=== PATIENT | female | born 1960 | race African-American/Black ===

== ENCOUNTER 2017-09-23 10:41 | Emergency (ER) | payer MEDICARE, MEDICAID ==
[~2017-09-23] VITALS: Ht 167.6 cm; Wt 97.0 kg
[2017-09-23] MEDS ORDERED: ALBUTEROL (0.083%) 2.5MG/3ML NEB HHN STA (11:10)
[2017-09-23] MEDS ORDERED: METHYLPREDNISOLONE SOD SUCC 125 MG/2 ML VIAL IV STA (11:10)
[2017-09-23] MEDS ORDERED: IPRATROPIUM BROMIDE (0.02%) 0.5MG/2.5ML NEB HHN STA (11:10)
[2017-09-23 13:15] VITALS: BP 164/90
[2017-09-23] MEDS ORDERED: PREDNISONE 20MG TABLET PO ONE (13:15)
== END 2017-09-23 15:00 | disposition home or self-care (01) ==
LOC: ER 14:36
DX: J40 Bronchitis, not specified as acute or chronic (principal); Z88.0 Allergy status to penicillin; Z87.891 Personal history of nicotine dependence; Z98.890 Other specified postprocedural states
CPT/HCPCS: 71045; 94644; 99285; J7512; J7611; J2930

== ENCOUNTER 2018-03-27 09:08 | Inpatient (IN) | payer MEDICARE, MEDICAID ==
[~2018-03-27] VITALS: Ht 165.1 cm; Wt 98.6 kg
[2018-03-27] MEDS ORDERED: MORPHINE SULFATE 4 MG/ML CPJ (NOT FOR IM USE) IV ONE (09:30)
[2018-03-27 09:58] LABS: BASOPHILS % 0.8 % (0.0-2.0); EOSINOPHILS % 3.9 % (0.0-5.0); HEMOGLOBIN. 12.7 g/dL (12.0-16.0); LYMPHOCYTES % 53.2 % (20.0-50.0); MEAN CORPUSCULAR HEMOGLOBIN 32.5 pg (28.0-32.0); MEAN PLATELET VOLUME 9.1 fl (7.4-10.4); NEUTROPHILS % 34.1 % (40.0-76.0); PLATELET 194 x1000/uL (130-400); RED BLOOD CELL COUNT 3.92 mill/uL (4.2-5.4); RED CELL DISTRIBUTION WIDTH 13.6 % (11.6-14.6)
[2018-03-27 10:00] LABS: CHLORIDE 108 mEq/L (98-107)
[2018-03-27 10:01] LABS: INR 1.2; PROTHROMBIN TIME 11.8 sec (9.1-11.1)
[2018-03-27] MEDS ORDERED: CARISOPRODOL 350 MG TABLET PO PRN ×2 (11:00→17:15)
[2018-03-27] MEDS ORDERED: CLONIDINE 0.1MG TABLET PO PRN (11:00)
[2018-03-27] MEDS ORDERED: HYDROCODONE/ACETAMINOPHEN 10/325MG TABLET PO PRN (11:00)
[2018-03-27] MEDS: GABAPENTIN 300MG CAPSULE PO SCH ×3 (14:30→23:15)
[2018-03-27] MEDS: MORPHINE SULFATE 4 MG/ML CPJ (NOT FOR IM USE) IV PRN ×2 (15:00→18:27)
[2018-03-27] MEDS: ONDANSETRON HCL 4MG/2ML VIAL IV PRN (15:01)
[2018-03-27 17:26] VITALS: BP 167/87
[2018-03-27] MEDS: LOSARTAN POTASSIUM 50 MG TABLET PO SCH (18:09)
[2018-03-27 20:00] VITALS: BP 114/63
[2018-03-27] MEDS: AMLODIPINE 5MG TABLET PO SCH (21:00)
[2018-03-28] VITALS: BP 103/54
[2018-03-28] MEDS: MORPHINE SULFATE 4 MG/ML CPJ (NOT FOR IM USE) IV PRN ×5 (01:43→22:44)
[2018-03-28 04:00] VITALS: BP 119/69
[2018-03-28] MEDS: GABAPENTIN 300MG CAPSULE PO SCH ×3 (05:38→21:27)
[2018-03-28 08:00] VITALS: BP 137/81
[2018-03-28] MEDS: LOSARTAN POTASSIUM 50 MG TABLET PO SCH (09:21)
[2018-03-28] MEDS: AMLODIPINE 5MG TABLET PO SCH ×2 (09:21→21:27)
[2018-03-28 12:00] VITALS: BP 136/73
[2018-03-28 16:00] VITALS: BP 128/83
[2018-03-28 20:00] VITALS: BP 155/80
[2018-03-29] VITALS (46 sets, daily range): BP systolic 41–174; BP diastolic 24–106
[2018-03-29] MEDS: MORPHINE SULFATE 4 MG/ML CPJ (NOT FOR IM USE) IV PRN ×3 (02:51→13:24)
[2018-03-29] MEDS: GABAPENTIN 300MG CAPSULE PO SCH ×4 (06:00→21:31)
[2018-03-29 07:21] LABS: CHLORIDE 107 mEq/L (98-107)
[2018-03-29 07:26] LABS: BASOPHILS % 0.7 % (0.0-2.0); HEMATOCRIT. 36.4 % (36.0-48.0); HEMOGLOBIN. 12.1 g/dL (12.0-16.0); LYMPHOCYTES % 53.3 % (20.0-50.0); MEAN CORPUSCULAR HEMOGLOBIN 32.2 pg (28.0-32.0); MEAN CORPUSCULAR VOLUME 96.6 fL (81.0-99.0); MEAN PLATELET VOLUME 9.3 fl (7.4-10.4); PLATELET 169 x1000/uL (130-400); RED BLOOD CELL COUNT 3.77 mill/uL (4.2-5.4); RED CELL DISTRIBUTION WIDTH 13.5 % (11.6-14.6)
[2018-03-29] MEDS: LOSARTAN POTASSIUM 50 MG TABLET PO SCH (09:00)
[2018-03-29] MEDS: AMLODIPINE 5MG TABLET PO SCH ×2 (09:00→21:26)
[2018-03-29] MEDS ORDERED: THROMBIN (BOVINE) 5000 UNITS/VIAL TOP ONE (09:38)
[2018-03-29] MEDS ORDERED: BACITRACIN ZINC 15GM TUBE TOP ONE (09:38)
[2018-03-29] MEDS ORDERED: GELATIN SPONGE,COMPRESSED SZ 100 ONE (09:39)
[2018-03-29] MEDS ORDERED: BACITRACIN 50,000 UNITS/VIAL ONE (09:39)
[2018-03-29] MEDS ORDERED: NORMAL SALINE 0.9% 10 ML SYR ONE ×2 (09:39→11:27)
[2018-03-29] MEDS ORDERED: ONDANSETRON HCL 4MG/2ML VIAL IV PRN (10:00)
[2018-03-29] MEDS ORDERED: FENTANYL CITRATE/PF 50MCG/ML 2ML VIAL IV PRN (10:00)
[2018-03-29] MEDS ORDERED: MIDAZOLAM HCL 2 MG/2 ML VIAL ONE (10:28)
[2018-03-29] MEDS ORDERED: PROPOFOL 200MG/20ML VIAL IV ONE (10:28)
[2018-03-29] MEDS ORDERED: FENTANYL CITRATE/PF 50MCG/ML 5ML VIAL ONE (10:28)
[2018-03-29] MEDS ORDERED: ROCURONIUM BROMIDE 10MG/ML VIAL 5ML IV ONE (10:28)
[2018-03-29] MEDS ORDERED: LIDOCAINE HCL/PF 1% 10 MG/ML 5ML VIAL ONE (10:29)
[2018-03-29] MEDS ORDERED: DEXAMETHASONE 4MG/ML 1ML VIAL ONE (10:29)
[2018-03-29] MEDS ORDERED: METOCLOPRAMIDE HCL 10MG/2ML VIAL ONE (10:29)
[2018-03-29] MEDS ORDERED: ONDANSETRON HCL 4MG/2ML VIAL ONE (10:29)
[2018-03-29] MEDS ORDERED: KETOROLAC 30MG/ML VIAL ONE (10:29)
[2018-03-29] MEDS ORDERED: LIDOCAINE HCL/EPINEPHRINE 1%-EPI 1:100,000 20 ML VIAL ONE ×2 (10:33→10:45)
[2018-03-29] MEDS ORDERED: SODIUM CHLORIDE 0.9% 100 ML ONE (11:27)
[2018-03-29] MEDS ORDERED: VANCOMYCIN HCL 500 MG/VIAL ONE (11:27)
[2018-03-29] MEDS ORDERED: LABETALOL HCL 5MG/ML VIAL 20ML IV ONE (11:40)
[2018-03-29] MEDS ORDERED: NEOSTIGMINE METHYLSULFATE 1MG/ML 10 ML VIAL ONE (12:34)
[2018-03-29] MEDS ORDERED: GLYCOPYRROLATE 0.2 MG/ML 2ML VIAL ONE (12:35)
[2018-03-29] MEDS ORDERED: NICARDIPINE 100 MG in SODIUM CHLORIDE 0.9% 60 ML IV PRN (13:30)
[2018-03-29] MEDS: DEXT 5%/LACTATED RINGERS 1,000 ML IV SCH ×2 (13:33→23:30)
[2018-03-29] MEDS ORDERED: HYDROMORPHONE PCA 10MG/50ML IV PRN (13:45)
[2018-03-29] MEDS ORDERED: NALOXONE INJ IV PRN (13:45)
[2018-03-29] MEDS ORDERED: ONDANSETRON INJ IV PRN (13:45)
[2018-03-29] MEDS ORDERED: DIPHENHYDRAMINE INJ IV PRN (13:45)
[2018-03-29] MEDS ORDERED: BISACODYL 5MG TABLET PO PRN (15:30)
[2018-03-29] MEDS ORDERED: IPRATROPIUM/ALBUTEROL 0.5-3(2.5)MG/3ML NEB HHN PRN (15:30)
[2018-03-29] MEDS: DEXAMETHASONE 4MG/ML 1ML VIAL IV SCH (17:19)
[2018-03-29] MEDS: VANCOMYCIN 1 G PREMIX 200 ML IV SCH (17:20)
[2018-03-29] MEDS: IPRATROPIUM/ALBUTEROL 0.5-3(2.5)MG/3ML NEB HHN SCH (20:40)
[2018-03-30] VITALS (53 sets, daily range): BP systolic 102–172; BP diastolic 28–104
[2018-03-30] MEDS: DEXAMETHASONE 4MG/ML 1ML VIAL IV SCH ×4 (00:51→18:00)
[2018-03-30] MEDS: IPRATROPIUM/ALBUTEROL 0.5-3(2.5)MG/3ML NEB HHN SCH ×4 (01:15→21:38)
[2018-03-30] MEDS: DEXT 5%/LACTATED RINGERS 1,000 ML IV SCH ×2 (02:55→14:31)
[2018-03-30 05:31] LABS: HEMATOCRIT. 36.7 % (36.0-48.0); HEMOGLOBIN. 12.3 g/dL (12.0-16.0); LYMPHOCYTES % 8.6 % (20.0-50.0); MEAN CORPUSCULAR HEMOGLOBIN 32.3 pg (28.0-32.0); MEAN CORPUSCULAR VOLUME 96.2 fL (81.0-99.0); MEAN PLATELET VOLUME 9.4 fl (7.4-10.4); MONOCYTES % 3.3 % (2.0-8.0); NEUTROPHILS % 88.1 % (40.0-76.0); PLATELET 177 x1000/uL (130-400); RED BLOOD CELL COUNT 3.82 mill/uL (4.2-5.4); RED CELL DISTRIBUTION WIDTH 13.4 % (11.6-14.6)
[2018-03-30 05:35] LABS: CHLORIDE 107 mEq/L (98-107)
[2018-03-30] MEDS: GABAPENTIN 300MG CAPSULE PO SCH ×3 (06:00→20:24)
[2018-03-30] MEDS: VANCOMYCIN 1 G PREMIX 200 ML IV SCH (06:31)
[2018-03-30] MEDS: LOSARTAN POTASSIUM 100 MG TABLET PO SCH (08:35)
[2018-03-30] MEDS: DOCUSATE SODIUM 100MG CAPSULE PO SCH (08:35)
[2018-03-30] MEDS: AMLODIPINE 5MG TABLET PO SCH ×2 (08:35→20:24)
[2018-03-30] MEDS: MORPHINE SULFATE 4 MG/ML CPJ (NOT FOR IM USE) IV PRN ×2 (14:31→20:24)
[2018-03-30] MEDS: ONDANSETRON HCL 4MG/2ML VIAL IV PRN (20:25)
[2018-03-31] VITALS: BP 142/77
[2018-03-31] MEDS: ONDANSETRON HCL 4MG/2ML VIAL IV PRN ×2 (01:15→06:31)
[2018-03-31] MEDS: MORPHINE SULFATE 4 MG/ML CPJ (NOT FOR IM USE) IV PRN ×5 (01:16→17:58)
[2018-03-31] MEDS: IPRATROPIUM/ALBUTEROL 0.5-3(2.5)MG/3ML NEB HHN SCH ×2 (02:54→07:50)
[2018-03-31 04:00] VITALS: BP 127/71
[2018-03-31] MEDS: GABAPENTIN 300MG CAPSULE PO SCH ×2 (06:30→14:00)
[2018-03-31] MEDS: DEXT 5%/LACTATED RINGERS 1,000 ML IV SCH (06:30)
[2018-03-31 08:00] VITALS: BP 145/84
[2018-03-31] MEDS: DOCUSATE SODIUM 100MG CAPSULE PO SCH (08:07)
[2018-03-31] MEDS: AMLODIPINE 5MG TABLET PO SCH ×2 (08:07→21:04)
[2018-03-31] MEDS: LOSARTAN POTASSIUM 100 MG TABLET PO SCH (08:07)
[2018-03-31 12:00] VITALS: BP 146/88
[2018-03-31] MEDS ORDERED: LACTULOSE 20G/30ML UDC PO NR (15:30)
[2018-03-31 16:00] VITALS: BP 114/80
[2018-03-31 20:00] VITALS: BP 143/81
[2018-03-31] MEDS: GABAPENTIN 400MG CAPSULE PO SCH (21:04)
[2018-04-01] VITALS (8 sets, daily range): BP systolic 104–156; BP diastolic 61–86
[2018-04-01] MEDS: GABAPENTIN 400MG CAPSULE PO SCH ×3 (06:50→21:01)
[2018-04-01 07:48] LABS: CHLORIDE 107 mEq/L (98-107)
[2018-04-01 07:49] LABS: BASOPHILS % 0.1 % (0.0-2.0); EOSINOPHILS % 0.1 % (0.0-5.0); HEMATOCRIT. 35.2 % (36.0-48.0); HEMOGLOBIN. 11.9 g/dL (12.0-16.0); LYMPHOCYTES % 26.8 % (20.0-50.0); MEAN CORPUSCULAR HEMOGLOBIN 32.5 pg (28.0-32.0); MEAN CORPUSCULAR VOLUME 96.2 fL (81.0-99.0); MEAN PLATELET VOLUME 9.5 fl (7.4-10.4); MONOCYTES % 7.9 % (2.0-8.0); NEUTROPHILS % 65.1 % (40.0-76.0); PLATELET 173 x1000/uL (130-400); RED BLOOD CELL COUNT 3.66 mill/uL (4.2-5.4); RED CELL DISTRIBUTION WIDTH 13.4 % (11.6-14.6)
[2018-04-01] MEDS: DOCUSATE SODIUM 100MG CAPSULE PO SCH (08:54)
[2018-04-01] MEDS: AMLODIPINE 5MG TABLET PO SCH ×2 (08:54→21:02)
[2018-04-01] MEDS: MORPHINE SULFATE 4 MG/ML CPJ (NOT FOR IM USE) IV PRN ×4 (08:55→21:02)
[2018-04-01] MEDS: LOSARTAN POTASSIUM 100 MG TABLET PO SCH (08:55)
[2018-04-01] MEDS: DEXT 5%/LACTATED RINGERS 1,000 ML IV SCH ×2 (11:08→12:05)
[2018-04-01] MEDS ORDERED: HYDROCODONE/ACETAMINOPHEN 10/325MG TABLET PO PRN (11:45)
== END 2018-04-01 23:00 | DRG 471 ==
LOC: ER 09:27 → 5WST 10:45 → EDBEDREQTM 10:50 → EDBEDREQ 10:50 → ENRESERV 13:46 → MICUSO 03-29 13:10 → 6EST 03-30 13:40
PROVIDERS: ADMIT Internal Medicine; ATTEND Internal Medicine
PROC: 0RT30ZZ Resection of Cervical Vertebral Disc, Open Approach (ICD-10-PCS; 2018-03-29)
PROC: 0RG20K0 Fusion of 2 or more Cervical Vertebral Joints with Nonautologous Tissue Substitute, Anterior Approach, Anterior Column, Open Approach (ICD-10-PCS; principal; 2018-03-29 13:00)
DX: M48.03 Spinal stenosis, cervicothoracic region (principal); G82.50 Quadriplegia, unspecified; E44.1 Mild protein-calorie malnutrition; M47.12 Other spondylosis with myelopathy, cervical region; I10 Essential (primary) hypertension; E87.8 Other disorders of electrolyte and fluid balance, not elsewhere classified; E66.01 Morbid (severe) obesity due to excess calories; D64.9 Anemia, unspecified; G89.29 Other chronic pain; R07.89 Other chest pain; J44.9 Chronic obstructive pulmonary disease, unspecified; I25.10 Atherosclerotic heart disease of native coronary artery without angina pectoris; K59.00 Constipation, unspecified; M48.061 Spinal stenosis, lumbar region without neurogenic claudication; S14.109A Unspecified injury at unspecified level of cervical spinal cord, initial encounter; I25.2 Old myocardial infarction; Z79.899 Other long term (current) drug therapy; Z82.49 Family history of ischemic heart disease and other diseases of the circulatory system; Z83.3 Family history of diabetes mellitus; Z90.710 Acquired absence of both cervix and uterus; Z88.0 Allergy status to penicillin; Z68.36 Body mass index [BMI] 36.0-36.9, adult; Z91.81 History of falling; X58.XXXA Exposure to other specified factors, initial encounter; Y93.89 Activity, other specified; Y92.89 Other specified places as the place of occurrence of the external cause; Y99.8 Other external cause status
CPT/HCPCS: 36415; 71045; 72040; 72141; 72148; 80048; 80053; 80061; 83036; 83880; 84443; 84484; 85025; 85610; 88304; 88311; 93005; 93306; 93970; 94640; 95925; 95926; 95928; 96374; 96375; 97163; 97167; 97530; 99285; A4216; C1713; C1893; J1100; J1885; J2250; J2270; J2405; J2704; J2710; J2765; J3010; J3370; J3490; J7050; J7121; J7620; L0172

== ENCOUNTER 2018-04-01 23:02 | Inpatient (IN) | payer MEDICARE, MEDICAID ==
[~2018-04-01] VITALS: Ht 165.1 cm; Wt 98.6 kg
[2018-04-01 23:02] VITALS: BP 127/73
[2018-04-02] MEDS ORDERED: IPRATROPIUM/ALBUTEROL 0.5-3(2.5)MG/3ML NEB HHN PRN
[2018-04-02] MEDS ORDERED: ACETAMINOPHEN 325MG TABLET PO PRN
[2018-04-02] MEDS ORDERED: CLONIDINE 0.1MG TABLET PO PRN
[2018-04-02] MEDS ORDERED: MORPHINE SULFATE 4 MG/ML CPJ (NOT FOR IM USE) IV PRN
[2018-04-02] MEDS ORDERED: ONDANSETRON HCL 4MG/2ML INJ IV PRN
[2018-04-02] MEDS: HYDROCODONE/ACETAMINOPHEN 10/325MG TABLET PO PRN ×3 (00:35→12:18)
[2018-04-02] MEDS: DEXT 5%/LACTATED RINGERS 1,000 ML IV SCH ×5 (04:43→06:21)
[2018-04-02] MEDS: GABAPENTIN 400MG CAPSULE PO SCH ×3 (06:01→22:46)
[2018-04-02 07:05] LABS: CHLORIDE 105 mEq/L (98-107)
[2018-04-02 08:00] VITALS: BP 129/75
[2018-04-02] MEDS: LOSARTAN POTASSIUM 100 MG TABLET PO SCH (08:59)
[2018-04-02] MEDS: AMLODIPINE 5MG TABLET PO SCH ×2 (08:59→21:00)
[2018-04-02] MEDS ORDERED: DOCUSATE SODIUM 100MG CAPSULE PO SCH (09:00)
[2018-04-02] MEDS ORDERED: BISACODYL 5MG TABLET PO PRN (12:45)
[2018-04-02] MEDS ORDERED: NA PHOS,M-B/NA PHOS,DI-BA ENEMA 118ML PR PRN (12:45)
[2018-04-02] MEDS ORDERED: BISACODYL 10MG SUPP PR PRN (12:45)
[2018-04-02] MEDS: LACTULOSE 20G/30ML UDC PO SCH ×2 (13:23→22:46)
[2018-04-02] MEDS: PANTOPRAZOLE 40MG DR TABLET PO SCH (14:28)
[2018-04-02 15:39] LABS: BASOPHILS % 0.2 % (0.0-2.0); EOSINOPHILS % 1.9 % (0.0-5.0); HEMATOCRIT. 37.8 % (36.0-48.0); HEMOGLOBIN. 12.6 g/dL (12.0-16.0); LYMPHOCYTES % 47.2 % (20.0-50.0); MEAN CORPUSCULAR HEMOGLOBIN 32.1 pg (28.0-32.0); MEAN PLATELET VOLUME 9.2 fl (7.4-10.4); NEUTROPHILS % 40.7 % (40.0-76.0); PLATELET 185 x1000/uL (130-400); RED BLOOD CELL COUNT 3.94 mill/uL (4.2-5.4); RED CELL DISTRIBUTION WIDTH 13.4 % (11.6-14.6)
[2018-04-02] MEDS: DOCUSATE SODIUM 100MG CAPSULE PO SCH (17:30)
[2018-04-02 20:00] VITALS: BP 129/74
[2018-04-02] MEDS: CARISOPRODOL 350 MG TABLET PO PRN (20:12)
[2018-04-02] MEDS: POLYETHYLENE GLYCOL 3350 (17GM) 1 DOSE PACK PO SCH (22:46)
[2018-04-03] MEDS: HYDROCODONE/ACETAMINOPHEN 10/325MG TABLET PO PRN ×5 (02:27→21:23)
[2018-04-03] MEDS: LACTULOSE 20G/30ML UDC PO SCH (06:00)
[2018-04-03] MEDS: GABAPENTIN 400MG CAPSULE PO SCH ×3 (06:00→21:22)
[2018-04-03] MEDS: PANTOPRAZOLE 40MG DR TABLET PO SCH ×2 (06:21→06:29)
[2018-04-03] MEDS: AMLODIPINE 5MG TABLET PO SCH ×2 (07:55→20:31)
[2018-04-03] MEDS: LOSARTAN POTASSIUM 100 MG TABLET PO SCH (07:55)
[2018-04-03] MEDS: DOCUSATE SODIUM 100MG CAPSULE PO SCH ×2 (07:55→17:15)
[2018-04-03 08:00] VITALS: BP 143/91
[2018-04-03 17:22] LABS: CLARITY URINE CLEAR (CLEAR); COLOR URINE YELLOW (YELLOW); KETONES URINE NEGATIVE (NEGATIVE); LEUKOCYTE ESTERASE URINE NEGATIVE (NEGATIVE); NITRITE URINE NEGATIVE (NEGATIVE); OCCULT BLOOD URINE NEGATIVE (NEGATIVE); PROTEIN URINE NEGATIVE (NEGATIVE); SPECIFIC GRAVITY URINE 1.008 (1.005-1.030)
[2018-04-03 20:00] VITALS: BP 123/80
[2018-04-03] MEDS: POLYETHYLENE GLYCOL 3350 (17GM) 1 DOSE PACK PO SCH (20:30)
[2018-04-04] MEDS: TRAMADOL 50MG TABLET PO PRN ×3 (03:35→16:43)
[2018-04-04] MEDS: GABAPENTIN 400MG CAPSULE PO SCH ×3 (06:34→21:51)
[2018-04-04] MEDS: PANTOPRAZOLE 40MG DR TABLET PO SCH (06:34)
[2018-04-04] MEDS: HYDROCODONE/ACETAMINOPHEN 10/325MG TABLET PO PRN ×3 (06:35→19:00)
[2018-04-04 07:17] LABS: BASOPHILS % 0.5 % (0.0-2.0); EOSINOPHILS % 3.8 % (0.0-5.0); HEMATOCRIT. 37.8 % (36.0-48.0); HEMOGLOBIN. 12.7 g/dL (12.0-16.0); LYMPHOCYTES % 47.3 % (20.0-50.0); MEAN CORPUSCULAR HEMOGLOBIN 32.2 pg (28.0-32.0); MEAN CORPUSCULAR VOLUME 96.1 fL (81.0-99.0); MEAN PLATELET VOLUME 9.4 fl (7.4-10.4); MONOCYTES % 8.9 % (2.0-8.0); NEUTROPHILS % 39.5 % (40.0-76.0); PLATELET 185 x1000/uL (130-400); RED BLOOD CELL COUNT 3.93 mill/uL (4.2-5.4); RED CELL DISTRIBUTION WIDTH 13.4 % (11.6-14.6)
[2018-04-04 07:27] LABS: CHLORIDE 104 mEq/L (98-107)
[2018-04-04 07:37] LABS: PHOSPHORUS 3.7 mg/dL (2.5-4.9)
[2018-04-04 07:38] LABS: LDL CHOLESTEROL 74 mg/dL (5-100)
[2018-04-04 07:40] LABS: HDL CHOLESTEROL 52 mg/dL (40-59); TOTAL IRON BINDING CAPACITY 445 ug/dL (250-450)
[2018-04-04 08:00] VITALS: BP 133/77
[2018-04-04] MEDS: AMLODIPINE 5MG TABLET PO SCH ×2 (09:08→21:52)
[2018-04-04] MEDS: LOSARTAN POTASSIUM 100 MG TABLET PO SCH (09:08)
[2018-04-04] MEDS: DOCUSATE SODIUM 100MG CAPSULE PO SCH ×2 (09:08→16:35)
[2018-04-04 14:41] LABS: FOLIC ACID (FOLATE) SERUM 9.6 ng/mL (>5.38)
[2018-04-04] MEDS: BISACODYL 5MG TABLET PO PRN (16:35)
[2018-04-04 20:00] VITALS: BP 133/89
[2018-04-04] MEDS: POLYETHYLENE GLYCOL 3350 (17GM) 1 DOSE PACK PO SCH (21:00)
[2018-04-04] MEDS: CARISOPRODOL 350 MG TABLET PO PRN (21:51)
[2018-04-05] MEDS: HYDROCODONE/ACETAMINOPHEN 10/325MG TABLET PO PRN ×4 (05:01→22:11)
[2018-04-05] MEDS: GABAPENTIN 400MG CAPSULE PO SCH ×2 (06:28→14:58)
[2018-04-05 07:45] VITALS: BP 106/55
[2018-04-05] MEDS: LOSARTAN POTASSIUM 100 MG TABLET PO SCH (09:00)
[2018-04-05] MEDS: AMLODIPINE 5MG TABLET PO SCH ×2 (09:00→23:33)
[2018-04-05] MEDS: FAMOTIDINE 20MG TABLET PO SCH ×2 (09:38→22:12)
[2018-04-05] MEDS: DOCUSATE SODIUM 100MG CAPSULE PO SCH ×2 (09:38→18:06)
[2018-04-05] MEDS: TRAMADOL 50MG TABLET PO PRN ×2 (13:28→18:07)
[2018-04-05] MEDS ORDERED: LACTULOSE 20G/30ML UDC PO SCH (16:22)
[2018-04-05] MEDS: BISACODYL 10MG SUPP PR SCH (16:22)
[2018-04-05] MEDS: BISACODYL 5MG TABLET PO PRN (18:06)
[2018-04-05 20:00] VITALS: BP 126/73
[2018-04-05] MEDS: POLYETHYLENE GLYCOL 3350 (17GM) 1 DOSE PACK PO SCH (22:10)
[2018-04-05] MEDS: GABAPENTIN 300MG CAPSULE PO SCH (22:12)
[2018-04-06] MEDS: TRAMADOL 50MG TABLET PO PRN ×2 (04:30→11:48)
[2018-04-06] MEDS: GABAPENTIN 300MG CAPSULE PO SCH ×3 (06:08→22:08)
[2018-04-06 08:00] VITALS: BP 128/81
[2018-04-06] MEDS: DOCUSATE SODIUM 100MG CAPSULE PO SCH ×2 (08:48→17:01)
[2018-04-06] MEDS: FAMOTIDINE 20MG TABLET PO SCH ×2 (08:48→22:08)
[2018-04-06] MEDS: LOSARTAN POTASSIUM 100 MG TABLET PO SCH (08:50)
[2018-04-06] MEDS: HYDROCODONE/ACETAMINOPHEN 10/325MG TABLET PO PRN ×2 (08:51→17:02)
[2018-04-06] MEDS: AMLODIPINE 5MG TABLET PO SCH ×2 (08:51→21:00)
[2018-04-06] MEDS: BISACODYL 10MG SUPP PR SCH (08:52)
[2018-04-06] MEDS ORDERED: METHYL SALICYLATE/MENTHOL CREAM 85GM TOP PRN (15:30)
[2018-04-06 20:00] VITALS: BP 116/74
[2018-04-06] MEDS: CARISOPRODOL 350 MG TABLET PO PRN (22:08)
[2018-04-06] MEDS: POLYETHYLENE GLYCOL 3350 (17GM) 1 DOSE PACK PO SCH (22:08)
[2018-04-07] MEDS: GABAPENTIN 300MG CAPSULE PO SCH ×3 (06:16→21:53)
[2018-04-07] MEDS: HYDROCODONE/ACETAMINOPHEN 10/325MG TABLET PO PRN ×2 (06:38→17:34)
[2018-04-07 07:07] LABS: 25-HYDROXY VITAMIN D3 15 ng/mL (.)
[2018-04-07 08:00] VITALS: BP 137/82
[2018-04-07] MEDS: AMLODIPINE 5MG TABLET PO SCH ×2 (08:42→21:53)
[2018-04-07] MEDS: DOCUSATE SODIUM 100MG CAPSULE PO SCH ×2 (08:42→17:34)
[2018-04-07] MEDS: LOSARTAN POTASSIUM 100 MG TABLET PO SCH (08:42)
[2018-04-07] MEDS: FAMOTIDINE 20MG TABLET PO SCH ×2 (08:42→21:53)
[2018-04-07] MEDS: BISACODYL 10MG SUPP PR SCH (09:00)
[2018-04-07] MEDS ORDERED: ERGOCALCIFEROL 50000UNITS CAPSULE PO SCH (12:00)
[2018-04-07 20:00] VITALS: BP 130/83
[2018-04-07] MEDS: POLYETHYLENE GLYCOL 3350 (17GM) 1 DOSE PACK PO SCH (21:52)
[2018-04-08] MEDS: TRAMADOL 50MG TABLET PO PRN ×3 (02:13→18:00)
[2018-04-08] MEDS: GABAPENTIN 300MG CAPSULE PO SCH ×4 (06:00→21:47)
[2018-04-08 08:00] VITALS: BP 148/91
[2018-04-08] MEDS: BISACODYL 10MG SUPP PR SCH (09:00)
[2018-04-08] MEDS: LOSARTAN POTASSIUM 100 MG TABLET PO SCH (09:16)
[2018-04-08] MEDS: AMLODIPINE 5MG TABLET PO SCH ×2 (09:16→21:47)
[2018-04-08] MEDS: DOCUSATE SODIUM 100MG CAPSULE PO SCH (09:16)
[2018-04-08] MEDS: FAMOTIDINE 20MG TABLET PO SCH ×2 (09:16→21:47)
[2018-04-08] MEDS: HYDROCODONE/ACETAMINOPHEN 10/325MG TABLET PO PRN (13:22)
[2018-04-08] MEDS ORDERED: TRAMADOL 50MG TABLET PO PRN (14:15)
[2018-04-08] MEDS ORDERED: DOCUSATE SODIUM 100MG CAPSULE PO PRN (14:45)
[2018-04-08 20:00] VITALS: BP 143/82
[2018-04-08] MEDS: POLYETHYLENE GLYCOL 3350 (17GM) 1 DOSE PACK PO SCH (21:00)
[2018-04-08] MEDS: SULFAMETHOXAZOLE/TRIMETHOPRIM 800/160MG TABLET PO SCH (21:47)
[2018-04-09] MEDS: GABAPENTIN 300MG CAPSULE PO SCH (06:08)
[2018-04-09] MEDS: TRAMADOL 50MG TABLET PO PRN (06:18)
[2018-04-09] MEDS: HYDROCODONE/ACETAMINOPHEN 10/325MG TABLET PO PRN ×2 (06:29→10:43)
[2018-04-09 08:00] VITALS: BP 104/71
[2018-04-09] MEDS: BISACODYL 10MG SUPP PR SCH (09:00)
[2018-04-09] MEDS: AMLODIPINE 5MG TABLET PO SCH (09:00)
[2018-04-09] MEDS: SULFAMETHOXAZOLE/TRIMETHOPRIM 800/160MG TABLET PO SCH (09:38)
[2018-04-09] MEDS: LOSARTAN POTASSIUM 100 MG TABLET PO SCH (09:38)
[2018-04-09] MEDS: FAMOTIDINE 20MG TABLET PO SCH (09:38)
[2018-04-09] MEDS ORDERED: DILTIAZEM HCL 5MG/ML 5ML VIAL IV ONE (11:45)
[2018-04-09] MEDS ORDERED: DILTIAZEM HCL 30MG TABLET PO SCH (12:00)
[2018-04-09] MEDS ORDERED: SODIUM CHLORIDE 0.9% 500 ML IV ONE (13:15)
[2018-04-09 15:08] VITALS: BP 88/67
[2018-04-10] MEDS ORDERED: LOSARTAN POTASSIUM 50 MG TABLET PO SCH (09:00)
== END 2018-04-09 16:25 | disposition short-term general hospital (02) | DRG 551 ==
LOC: OBSVTOIN 23:02
PROVIDERS: ADMIT Physical Medicine & Rehabilitation Spinal Cord Injury Medicine; ATTEND Internal Medicine
DX: M47.12 Other spondylosis with myelopathy, cervical region (principal); G82.50 Quadriplegia, unspecified; I47.1 Supraventricular tachycardia; M48.03 Spinal stenosis, cervicothoracic region; G83.81 Brown-Sequard syndrome; R13.10 Dysphagia, unspecified; R26.9 Unspecified abnormalities of gait and mobility; R53.81 Other malaise; I10 Essential (primary) hypertension; I25.10 Atherosclerotic heart disease of native coronary artery without angina pectoris; D64.9 Anemia, unspecified; M54.2 Cervicalgia; M48.061 Spinal stenosis, lumbar region without neurogenic claudication; I95.9 Hypotension, unspecified; I27.20 Pulmonary hypertension, unspecified; G89.29 Other chronic pain; I36.1 Nonrheumatic tricuspid (valve) insufficiency; K59.00 Constipation, unspecified; E55.9 Vitamin D deficiency, unspecified; E66.9 Obesity, unspecified; F06.31 Mood disorder due to known physiological condition with depressive features; M47.812 Spondylosis without myelopathy or radiculopathy, cervical region; I25.2 Old myocardial infarction; Z90.710 Acquired absence of both cervix and uterus; Z91.81 History of falling; Z68.36 Body mass index [BMI] 36.0-36.9, adult; Z79.899 Other long term (current) drug therapy
CPT/HCPCS: 36415; 80048; 80053; 80061; 81003; 82306; 82607; 82728; 82746; 83036; 83540; 83550; 83735; 84100; 84134; 84443; 84630; 85025; 87077; 87086; 87186; 92523; 92610; 93005; 97110; 97116; 97162; 97167; 97530; 97535; C1893; G0515; J2270; J7030; J7040; J7121; L0172

== ENCOUNTER 2018-05-27 07:40 | Emergency (ER) | payer MEDICARE, MEDICAID ==
[~2018-05-27] VITALS: Ht 165.1 cm; Wt 77.0 kg
[2018-05-27] MEDS ORDERED: ASPIRIN 81MG TABLET PO ONE (09:15)
[2018-05-27] MEDS ORDERED: MORPHINE SULFATE 4 MG/ML CPJ (NOT FOR IM USE) IV STA (09:35)
[2018-05-27] MEDS ORDERED: ONDANSETRON HCL 4MG/2ML INJ IV STA (09:35)
[2018-05-27 09:42] LABS: BASOPHILS % 0.8 % (0.0-2.0); EOSINOPHILS % 0.7 % (0.0-5.0); HEMATOCRIT. 37.5 % (36.0-48.0); HEMOGLOBIN. 12.5 g/dL (12.0-16.0); LYMPHOCYTES % 55.3 % (20.0-50.0); MEAN CORPUSCULAR HEMOGLOBIN 31.4 pg (28.0-32.0); MEAN CORPUSCULAR VOLUME 94.3 fL (81.0-99.0); MEAN PLATELET VOLUME 8.3 fl (7.4-10.4); NEUTROPHILS % 34.2 % (40.0-76.0); PLATELET 221 x1000/uL (130-400); RED BLOOD CELL COUNT 3.97 mill/uL (4.2-5.4); RED CELL DISTRIBUTION WIDTH 14.6 % (11.6-14.6)
[2018-05-27 09:49] LABS: INR 1.2; PARTIAL THROMBOPLASTIN TIME 28.4 sec (23.4-31.0); PROTHROMBIN TIME 11.6 sec (9.1-11.1)
[2018-05-27 09:52] LABS: CHLORIDE 110 mEq/L (98-107)
[2018-05-27] MEDS ORDERED: POTASSIUM CHLORIDE 20MEQ TABLET SR PO ONE (11:00)
[2018-05-27] MEDS ORDERED: KETOROLAC 15MG/ML VIAL IV ONE (12:45)
[2018-05-27] MEDS ORDERED: MORPHINE SULFATE 2 MG/ML CPJ (NOT FOR IM USE) IV ONE (13:15)
[2018-05-27 13:49] VITALS: BP 132/73
== END 2018-05-27 14:29 | disposition home or self-care (01) ==
LOC: ER 07:40
DX: R07.89 Other chest pain (principal); R53.1 Weakness; J44.9 Chronic obstructive pulmonary disease, unspecified; I10 Essential (primary) hypertension; E87.6 Hypokalemia; R94.31 Abnormal electrocardiogram [ECG] [EKG]; I25.2 Old myocardial infarction; Z98.1 Arthrodesis status; Z88.0 Allergy status to penicillin; M48.02 Spinal stenosis, cervical region
CPT/HCPCS: 36415; 71045; 72141; 78582; 80053; 83880; 84484; 85025; 85379; 85610; 85730; 93005; 96374; 96375; 96376; 99285; A9540; A9558; J2270; J2405; J1885

== ENCOUNTER → 2018-10-30 | Outpatient (CLI) | payer MEDICARE, MEDICAID ==
[~2018-10-30] MED LIST: ALBU18HF2 IH; AMIO100T4 PO; HYDR-4134 PO; OXYC-104 PO; OXYC-579 PO
== END | disposition home or self-care (01) ==
LOC: MRI 09:09
PROVIDERS: ATTEND Neurological Surgery
DX: M51.36 Other intervertebral disc degeneration, lumbar region (principal); M48.061 Spinal stenosis, lumbar region without neurogenic claudication; M47.812 Spondylosis without myelopathy or radiculopathy, cervical region; M48.8X2 Other specified spondylopathies, cervical region
CPT/HCPCS: 72141; 72148

== ENCOUNTER 2018-11-07 19:34 | Emergency (ER) | payer MEDICARE, MEDICAID ==
[~2018-11-07] VITALS: Ht 165.1 cm; Wt 78.0 kg
[2018-11-07] MEDS ORDERED: MORPHINE SULFATE 10 MG/ML CPJ IM ONE (21:00)
[2018-11-07 22:40] VITALS: BP 141/74
== END 2018-11-07 23:15 | disposition home or self-care (01) ==
LOC: ER 19:34
DX: G89.29 Other chronic pain (principal); M54.5 Low back pain; M48.00 Spinal stenosis, site unspecified; I10 Essential (primary) hypertension; J45.909 Unspecified asthma, uncomplicated; Z98.1 Arthrodesis status; Z90.710 Acquired absence of both cervix and uterus; Z88.0 Allergy status to penicillin
CPT/HCPCS: 96372; 99283; J2270

== ENCOUNTER 2018-11-18 07:04 | Inpatient (IN) | payer MEDICARE, MEDICAID ==
[2018-11-18] VITALS (37 sets, daily range): BP systolic 79–146; BP diastolic 38–78
[~2018-11-18] VITALS: Ht 165.1 cm; Wt 107.5 kg
[2018-11-18] MEDS ORDERED: LACTATED RINGERS 1,000 ML IV SCH (08:30)
[2018-11-18 09:00] LABS: INR 1.2; PARTIAL THROMBOPLASTIN TIME 29.2 sec (23.4-31.0); PROTHROMBIN TIME 11.8 sec (9.6-11.0)
[2018-11-18] MEDS ORDERED: LIDOCAINE HCL/EPINEPHRINE 1%-EPI 1:100,000 20 ML VIAL ONE (09:12)
[2018-11-18] MEDS ORDERED: THROMBIN (BOVINE) 5000 UNITS/VIAL TOP ONE ×2 (09:12→09:13)
[2018-11-18] MEDS ORDERED: BACITRACIN 50,000 UNITS/VIAL ONE (09:13)
[2018-11-18 09:37] LABS: CHLORIDE 110 mEq/L (98-107)
[2018-11-18] MEDS ORDERED: FENTANYL CITRATE/PF 50MCG/ML 2ML VIAL ONE ×3 (09:44→12:11)
[2018-11-18] MEDS ORDERED: PROPOFOL 200MG/20ML VIAL IV ONE ×2 (09:45→12:12)
[2018-11-18] MEDS ORDERED: MIDAZOLAM HCL 2 MG/2 ML VIAL ONE ×2 (09:45→12:12)
[2018-11-18] MEDS ORDERED: ROCURONIUM BROMIDE 10MG/ML VIAL 5ML IV ONE ×3 (09:51→12:11)
[2018-11-18] MEDS ORDERED: NICARDIPINE 100 MG in SODIUM CHLORIDE 0.9% 60 ML IV PRN (10:00)
[2018-11-18] MEDS ORDERED: ONDANSETRON HCL 4MG/2ML INJ IV PRN ×2 (10:00→13:30)
[2018-11-18 11:15] LABS: BASOPHILS % 1.4 % (0.0-2.0); EOSINOPHILS % 2.7 % (0.0-5.0); HEMATOCRIT. 37.9 % (36.0-48.0); HEMOGLOBIN. 12.6 g/dL (12.0-16.0); LYMPHOCYTES % 53.1 % (20.0-50.0); MEAN CORPUSCULAR HEMOGLOBIN 31.3 pg (28.0-32.0); MEAN CORPUSCULAR VOLUME 94.1 fL (81.0-99.0); MEAN PLATELET VOLUME 9.1 fl (7.4-10.4); MONOCYTES % 10.8 % (2.0-8.0); PLATELET 182 x1000/uL (130-400); RED BLOOD CELL COUNT 4.03 mill/uL (4.2-5.4); RED CELL DISTRIBUTION WIDTH 14.4 % (11.6-14.6)
[2018-11-18] MEDS ORDERED: HYDRALAZINE 20MG/ML VIAL ONE (12:05)
[2018-11-18] MEDS ORDERED: NEOSTIGMINE METHYLSULFATE 1MG/ML 10 ML VIAL ONE (12:06)
[2018-11-18] MEDS ORDERED: GLYCOPYRROLATE 0.2 MG/ML 2ML VIAL ONE (12:06)
[2018-11-18] MEDS ORDERED: SUCCINYLCHOLINE CHLORIDE 200MG/10ML IV ONE (13:17)
[2018-11-18] MEDS ORDERED: LABETALOL 5MG/ML SYR 20 MG/4 ML SYRINGE IV PRN (13:30)
[2018-11-18] MEDS ORDERED: MEPERIDINE HCL/PF 25MG/ML CPJ IV PRN (13:30)
[2018-11-18] MEDS ORDERED: HYDROMORPHONE HCL/PF 2MG/ML CPJ IV PRN ×2 (13:30)
[2018-11-18] MEDS: KETOROLAC 30MG/ML VIAL IV SCH ×2 (14:00→19:31)
[2018-11-18] MEDS ORDERED: DIPHENHYDRAMINE INJ IV PRN (14:00)
[2018-11-18] MEDS ORDERED: NALOXONE INJ IV PRN (14:00)
[2018-11-18] MEDS ORDERED: ONDANSETRON INJ IV PRN (14:00)
[2018-11-18] MEDS: HYDROMORPHONE PCA 10MG/50ML IV PRN (14:26)
[2018-11-18] MEDS ORDERED: VANCOMYCIN 1250MG in DEXTROSE 5% WATER 250ML IV SCH (14:30)
[2018-11-18] MEDS: DEXT 5%/LACTATED RINGERS 1,000 ML IV SCH ×2 (14:43→23:05)
[2018-11-18] MEDS ORDERED: HYDR-4134 PO (16:30)
[2018-11-18] MEDS ORDERED: AMIO100T4 PO (16:30)
[2018-11-18] MEDS ORDERED: OXYC-579 PO (16:30)
[2018-11-18] MEDS ORDERED: ALBU18HF2 IH (16:30)
[2018-11-18] MEDS ORDERED: PANTOPRAZOLE SODIUM 40 MG/VIAL IV NR (17:30)
[2018-11-18] MEDS ORDERED: IPRATROPIUM/ALBUTEROL 0.5-3(2.5)MG/3ML NEB HHN PRN (17:30)
[2018-11-18] MEDS: ACETAMINOPHEN 500MG TABLET PO SCH (18:00)
[2018-11-18] MEDS: MORPHINE SULFATE 4 MG/ML CPJ (NOT FOR IM USE) IV PRN (19:34)
[2018-11-18] MEDS: BUDESONIDE 0.5MG/2ML NEB HHN SCH (19:52)
[2018-11-18] MEDS: IPRATROPIUM/ALBUTEROL 0.5-3(2.5)MG/3ML NEB HHN SCH (19:53)
[2018-11-18 21:06] LABS: CLARITY URINE CLOUDY (CLEAR); COLOR URINE YELLOW (YELLOW); KETONES URINE NEGATIVE (NEGATIVE); LEUKOCYTE ESTERASE URINE TRACE (NEGATIVE); NITRITE URINE NEGATIVE (NEGATIVE); OCCULT BLOOD URINE 2+ (NEGATIVE); PROTEIN URINE NEGATIVE (NEGATIVE); SPECIFIC GRAVITY URINE 1.027 (1.005-1.030)
[2018-11-18] MEDS: VANCOMYCIN 1 G PREMIX 200 ML IV SCH (23:42)
[2018-11-18] MEDS ORDERED: LACTATED RINGERS 1,000 ML IV NR (23:45)
[2018-11-19] VITALS (53 sets, daily range): BP systolic 74–178; BP diastolic 34–114
[2018-11-19] MEDS: MORPHINE SULFATE 4 MG/ML CPJ (NOT FOR IM USE) IV PRN ×5 (00:29→19:57)
[2018-11-19] MEDS: IPRATROPIUM/ALBUTEROL 0.5-3(2.5)MG/3ML NEB HHN SCH ×4 (01:32→20:32)
[2018-11-19] MEDS: ACETAMINOPHEN 500MG TABLET PO SCH ×4 (02:00→23:21)
[2018-11-19] MEDS: HYDROMORPHONE PCA 10MG/50ML IV PRN ×2 (05:14→21:22)
[2018-11-19] MEDS: BUDESONIDE 0.5MG/2ML NEB HHN SCH ×2 (08:26→20:31)
[2018-11-19] MEDS: DEXT 5%/LACTATED RINGERS 1,000 ML IV SCH ×3 (08:39→19:20)
[2018-11-19] MEDS: PANTOPRAZOLE SODIUM 40 MG/VIAL IV SCH (09:09)
[2018-11-19] MEDS ORDERED: SODIUM CHLORIDE 0.9% 500 ML IV NR (11:15)
[2018-11-19] MEDS: VANCOMYCIN 1 G PREMIX 200 ML IV SCH (11:24)
[2018-11-19] MEDS: MIDODRINE HCL 5MG TABLET PO SCH ×2 (16:28→16:29)
[2018-11-19] MEDS ORDERED: MORPHINE SULFATE 4 MG/ML CPJ (NOT FOR IM USE) IV PRN (23:15)
[2018-11-20] VITALS (47 sets, daily range): BP systolic 75–153; BP diastolic 23–89
[2018-11-20] MEDS: MORPHINE SULFATE 4 MG/ML CPJ (NOT FOR IM USE) IV PRN ×3 (00:01→12:16)
[2018-11-20] MEDS: IPRATROPIUM/ALBUTEROL 0.5-3(2.5)MG/3ML NEB HHN SCH ×4 (01:12→16:27)
[2018-11-20 05:51] LABS: BASOPHILS % 0.4 % (0.0-2.0); EOSINOPHILS % 0.1 % (0.0-5.0); HEMATOCRIT. 25.2 % (36.0-48.0); HEMOGLOBIN. 8.4 g/dL (12.0-16.0); LYMPHOCYTES % 30.2 % (20.0-50.0); MEAN CORPUSCULAR HEMOGLOBIN 31.9 pg (28.0-32.0); MEAN PLATELET VOLUME 9.5 fl (7.4-10.4); MONOCYTES % 12.8 % (2.0-8.0); NEUTROPHILS % 56.5 % (40.0-76.0); PLATELET 123 x1000/uL (130-400); RED BLOOD CELL COUNT 2.63 mill/uL (4.2-5.4); RED CELL DISTRIBUTION WIDTH 14.7 % (11.6-14.6)
[2018-11-20 06:18] LABS: CHLORIDE 114 mEq/L (98-107)
[2018-11-20] MEDS ORDERED: SODIUM CHLORIDE 0.9% 500 ML IV NR (07:30)
[2018-11-20] MEDS: BUDESONIDE 0.5MG/2ML NEB HHN SCH ×2 (09:12→20:11)
[2018-11-20] MEDS ORDERED: LIDOCAINE HCL 1% 20ML VIAL (Pyxis) INJ ONE (09:16)
[2018-11-20] MEDS: PANTOPRAZOLE SODIUM 40 MG/VIAL IV SCH (09:28)
[2018-11-20] MEDS: MIDODRINE HCL 5MG TABLET PO SCH (09:29)
[2018-11-20 09:52] LABS: HEMATOCRIT 27.3 % (36.0-48.0)
[2018-11-20] MEDS ORDERED: POTASSIUM CHLORIDE 20MEQ TABLET SR PO NR (10:45)
[2018-11-20] MEDS ORDERED: BISACODYL 5MG TABLET PO PRN (11:00)
[2018-11-20] MEDS: DEXT 5%/LACTATED RINGERS 1,000 ML IV SCH ×2 (14:04→21:17)
[2018-11-20] MEDS: HYDROMORPHONE PCA 10MG/50ML IV PRN (15:44)
[2018-11-20] MEDS: DOCUSATE SODIUM 100MG CAPSULE PO SCH (17:16)
[2018-11-20] MEDS: ACETAMINOPHEN 325MG TABLET PO PRN (18:49)
[2018-11-21] VITALS (52 sets, daily range): BP systolic 87–164; BP diastolic 42–103
[2018-11-21] MEDS: IPRATROPIUM/ALBUTEROL 0.5-3(2.5)MG/3ML NEB HHN SCH ×2 (00:12→04:00)
[2018-11-21] MEDS: MORPHINE SULFATE 4 MG/ML CPJ (NOT FOR IM USE) IV PRN ×5 (00:29→22:02)
[2018-11-21] MEDS: DEXT 5%/LACTATED RINGERS 1,000 ML IV SCH ×4 (04:33→22:01)
[2018-11-21] MEDS: BUDESONIDE 0.5MG/2ML NEB HHN SCH (08:00)
[2018-11-21] MEDS: IPRATROPIUM BROMIDE (0.02%) 0.5MG/2.5ML NEB HHN SCH ×2 (08:30→21:12)
[2018-11-21] MEDS ORDERED: DILTIAZEM HCL 5MG/ML 5ML VIAL IV NR ×2 (09:00→09:45)
[2018-11-21] MEDS: HYDROMORPHONE PCA 10MG/50ML IV PRN (09:14)
[2018-11-21 09:15] LABS: BASOPHILS % 0.4 % (0.0-2.0); EOSINOPHILS % 1.6 % (0.0-5.0); HEMATOCRIT. 30.5 % (36.0-48.0); LYMPHOCYTES % 35.1 % (20.0-50.0); MEAN CORPUSCULAR HEMOGLOBIN 31.5 pg (28.0-32.0); MEAN CORPUSCULAR VOLUME 96.2 fL (81.0-99.0); MEAN PLATELET VOLUME 9.2 fl (7.4-10.4); MONOCYTES % 12.9 % (2.0-8.0); PLATELET 148 x1000/uL (130-400); RED BLOOD CELL COUNT 3.17 mill/uL (4.2-5.4); RED CELL DISTRIBUTION WIDTH 14.6 % (11.6-14.6)
[2018-11-21 09:19] LABS: CHLORIDE 108 mEq/L (98-107)
[2018-11-21] MEDS: ACETAMINOPHEN 325MG TABLET PO PRN (09:50)
[2018-11-21] MEDS: PANTOPRAZOLE SODIUM 40 MG/VIAL IV SCH (09:50)
[2018-11-21] MEDS: DOCUSATE SODIUM 100MG CAPSULE PO SCH ×2 (09:50→17:14)
[2018-11-21] MEDS ORDERED: LORAZEPAM 2MG/ML CPJ IV SCH (10:00)
[2018-11-21] MEDS ORDERED: SODIUM CHLORIDE 0.9% 500 ML IV ONE (10:30)
[2018-11-21] MEDS ORDERED: CEFTRIAXONE 1 G PREMIX 50 ML IV SCH (11:30)
[2018-11-21] MEDS ORDERED: IOHEXOL-350 100 ML BOTTLE ONE (12:39)
[2018-11-21] MEDS ORDERED: DIGOXIN 500MCG/2ML AMP IV NR ×2 (13:03→15:00)
[2018-11-21] MEDS: LEVOFLOXACIN 500MG PREMIX 100 ML IV SCH (13:08)
[2018-11-21] MEDS ORDERED: DIGOXIN 250MCG TABLET PO NR (18:00)
[2018-11-21] MEDS: AMIODARONE HCL 200 MG TABLET PO SCH (22:02)
[2018-11-22] VITALS (23 sets, daily range): BP systolic 97–150; BP diastolic 48–88
[2018-11-22] MEDS: DEXT 5%/LACTATED RINGERS 1,000 ML IV SCH ×4 (00:40→22:54)
[2018-11-22] MEDS: ACETYLCYSTEINE 100MG/ML 10% VIAL 4ML INH SCH ×3 (02:12→15:00)
[2018-11-22] MEDS: IPRATROPIUM BROMIDE (0.02%) 0.5MG/2.5ML NEB HHN SCH ×4 (02:12→20:22)
[2018-11-22] MEDS: MORPHINE SULFATE 4 MG/ML CPJ (NOT FOR IM USE) IV PRN ×4 (02:41→22:58)
[2018-11-22] MEDS: DOCUSATE SODIUM 100MG CAPSULE PO SCH ×2 (09:00→18:35)
[2018-11-22] MEDS: PANTOPRAZOLE SODIUM 40 MG/VIAL IV SCH (09:00)
[2018-11-22] MEDS: AMIODARONE HCL 200 MG TABLET PO SCH ×2 (09:00→20:06)
[2018-11-22] MEDS ORDERED: MAGNESIUM 2 G PREMIX 50 ML IV NR (11:30)
[2018-11-22] MEDS: HYDROMORPHONE PCA 10MG/50ML IV PRN (12:12)
[2018-11-22] MEDS: LEVOFLOXACIN 500MG PREMIX 100 ML IV SCH (12:33)
[2018-11-22] MEDS: DIGOXIN 250MCG TABLET PO SCH (18:36)
[2018-11-22] MEDS: POLYETHYLENE GLYCOL 3350 (17GM) 1 DOSE PACK PO SCH (20:06)
[2018-11-22] MEDS: ACETAMINOPHEN 325MG TABLET PO PRN (20:07)
[2018-11-23] VITALS (15 sets, daily range): BP systolic 95–139; BP diastolic 52–82
[2018-11-23] MEDS: ACETYLCYSTEINE 100MG/ML 10% VIAL 4ML INH SCH ×2 (02:39→08:30)
[2018-11-23] MEDS: IPRATROPIUM BROMIDE (0.02%) 0.5MG/2.5ML NEB HHN SCH ×4 (02:39→20:39)
[2018-11-23] MEDS: DOCUSATE SODIUM 100MG CAPSULE PO SCH ×2 (08:12→17:04)
[2018-11-23] MEDS: PANTOPRAZOLE SODIUM 40 MG/VIAL IV SCH (08:12)
[2018-11-23] MEDS: AMIODARONE HCL 200 MG TABLET PO SCH ×2 (08:12→20:23)
[2018-11-23] MEDS: MORPHINE SULFATE 4 MG/ML CPJ (NOT FOR IM USE) IV PRN ×4 (08:13→20:24)
[2018-11-23] MEDS: LEVOFLOXACIN 500MG PREMIX 100 ML IV SCH (13:11)
[2018-11-23] MEDS: DIGOXIN 250MCG TABLET PO SCH (17:04)
[2018-11-23] MEDS: HYDROCODONE/APAP 7.5/325MG 1 TAB TABLET PO PRN (18:59)
[2018-11-23] MEDS: POLYETHYLENE GLYCOL 3350 (17GM) 1 DOSE PACK PO SCH (20:24)
[2018-11-24] VITALS (7 sets, daily range): BP systolic 103–147; BP diastolic 47–83
[2018-11-24] MEDS: IPRATROPIUM BROMIDE (0.02%) 0.5MG/2.5ML NEB HHN SCH ×4 (01:21→20:05)
[2018-11-24] MEDS: MORPHINE SULFATE 4 MG/ML CPJ (NOT FOR IM USE) IV PRN ×4 (04:59→21:11)
[2018-11-24] MEDS: AMIODARONE HCL 200 MG TABLET PO SCH ×2 (08:59→20:54)
[2018-11-24] MEDS: PANTOPRAZOLE SODIUM 40 MG/VIAL IV SCH (08:59)
[2018-11-24] MEDS: DOCUSATE SODIUM 100MG CAPSULE PO SCH ×2 (08:59→17:24)
[2018-11-24] MEDS: LACTULOSE 20G/30ML UDC PO SCH ×3 (10:00→17:24)
[2018-11-24] MEDS ORDERED: BISACODYL 10MG SUPP PR PRN (10:00)
[2018-11-24] MEDS ORDERED: NA PHOS,M-B/NA PHOS,DI-BA ENEMA 118ML PR SCH (10:00)
[2018-11-24] MEDS ORDERED: NA PHOS,M-B/NA PHOS,DI-BA ENEMA 118ML PR PRN (10:15)
[2018-11-24] MEDS: ACETYLCYSTEINE 100MG/ML 10% VIAL 4ML INH SCH ×2 (10:47→14:00)
[2018-11-24] MEDS: LEVOFLOXACIN 500MG PREMIX 100 ML IV SCH (14:56)
[2018-11-24] MEDS ORDERED: DOCUSATE SODIUM 100MG CAPSULE PO SCH (17:00)
[2018-11-24] MEDS: HYDROCODONE/APAP 7.5/325MG 1 TAB TABLET PO PRN (17:24)
[2018-11-24] MEDS: DIGOXIN 250MCG TABLET PO SCH (17:24)
[2018-11-24] MEDS: POLYETHYLENE GLYCOL 3350 (17GM) 1 DOSE PACK PO SCH (20:54)
[2018-11-24] MEDS ORDERED: POLYETHYLENE GLYCOL 3350 (17GM) 1 DOSE PACK PO SCH (21:00)
[2018-11-25] VITALS: BP 105/60
[2018-11-25] MEDS: ACETYLCYSTEINE 100MG/ML 10% VIAL 4ML INH SCH (03:05)
[2018-11-25] MEDS: IPRATROPIUM BROMIDE (0.02%) 0.5MG/2.5ML NEB HHN SCH (03:05)
[2018-11-25] MEDS: MORPHINE SULFATE 4 MG/ML CPJ (NOT FOR IM USE) IV PRN ×2 (03:07→09:39)
[2018-11-25 04:00] VITALS: BP 119/52
[2018-11-25 07:32] LABS: HEMATOCRIT. 27.1 % (36.0-48.0); MEAN CORPUSCULAR HEMOGLOBIN 31.8 pg (28.0-32.0); MEAN CORPUSCULAR VOLUME 95.9 fL (81.0-99.0); MEAN PLATELET VOLUME 8.6 fl (7.4-10.4); PLATELET 178 x1000/uL (130-400); RED BLOOD CELL COUNT 2.83 mill/uL (4.2-5.4); RED CELL DISTRIBUTION WIDTH 13.6 % (11.6-14.6)
[2018-11-25 08:00] VITALS: BP 101/55
[2018-11-25] MEDS: HYDROCODONE/APAP 7.5/325MG 1 TAB TABLET PO PRN (08:07)
[2018-11-25 08:15] LABS: CHLORIDE 105 mEq/L (98-107)
[2018-11-25 08:32] LABS: PLATELET ESTIMATE NORMAL
[2018-11-25] MEDS: AMIODARONE HCL 200 MG TABLET PO SCH (08:36)
[2018-11-25] MEDS: DOCUSATE SODIUM 100MG CAPSULE PO SCH ×2 (08:37→09:49)
[2018-11-25] MEDS ORDERED: FAMOTIDINE 20MG TABLET PO SCH (09:00)
[2018-11-25] MEDS ORDERED: GUAIFENESIN 600MG ER TABLET PO SCH (09:00)
[2018-11-25 11:59] VITALS: BP 117/57
[2018-11-25] MEDS ORDERED: IPRATROPIUM BROMIDE (0.02%) 0.5MG/2.5ML NEB HHN SCH (12:00)
[2018-11-25] MEDS: LEVOFLOXACIN 500MG PREMIX 100 ML IV SCH (12:19)
[2018-11-25 16:00] VITALS: BP 104/53
[2018-11-25 16:42] VITALS: BP 104/53
[2018-11-25] MEDS ORDERED: ENOXAPARIN 30MG/0.3ML SYR SUBCUT SCH (21:00)
[2018-11-26] MEDS ORDERED: OXYC-104 PO (02:55)
[2018-11-26] MEDS ORDERED: AMIODARONE HCL 200 MG TABLET PO SCH (09:00)
[2018-11-26] MEDS ORDERED: LEVOFLOXACIN 500MG TABLET PO SCH (11:00)
== END 2018-11-25 17:47 | DRG 459 ==
LOC: OR 07:04 → MICUSO 07:05 → 8WST 11-23 12:13
PROVIDERS: ADMIT Neurological Surgery; ATTEND Neurological Surgery
PROC: 0SG1071 Fusion of 2 or more Lumbar Vertebral Joints with Autologous Tissue Substitute, Posterior Approach, Posterior Column, Open Approach (ICD-10-PCS; principal; 2018-11-18)
PROC: 4A11X4G Monitoring of Peripheral Nervous Electrical Activity, Intraoperative, External Approach (ICD-10-PCS; 2018-11-18)
PROC: 02HV33Z Insertion of Infusion Device into Superior Vena Cava, Percutaneous Approach (ICD-10-PCS; 2018-11-20)
PROC: B548ZZA Ultrasonography of Superior Vena Cava, Guidance (ICD-10-PCS; 2018-11-20)
DX: M48.061 Spinal stenosis, lumbar region without neurogenic claudication (principal); G82.50 Quadriplegia, unspecified; J96.01 Acute respiratory failure with hypoxia; M47.16 Other spondylosis with myelopathy, lumbar region; J98.11 Atelectasis; I47.1 Supraventricular tachycardia; J44.9 Chronic obstructive pulmonary disease, unspecified; I10 Essential (primary) hypertension; E66.9 Obesity, unspecified; D63.8 Anemia in other chronic diseases classified elsewhere; I95.9 Hypotension, unspecified; N31.9 Neuromuscular dysfunction of bladder, unspecified; D72.819 Decreased white blood cell count, unspecified; E83.42 Hypomagnesemia; G89.4 Chronic pain syndrome; I25.10 Atherosclerotic heart disease of native coronary artery without angina pectoris; R26.9 Unspecified abnormalities of gait and mobility; I48.91 Unspecified atrial fibrillation; I49.3 Ventricular premature depolarization; K21.9 Gastro-esophageal reflux disease without esophagitis; K59.00 Constipation, unspecified; K76.0 Fatty (change of) liver, not elsewhere classified; M48.02 Spinal stenosis, cervical region; I25.2 Old myocardial infarction; Z87.891 Personal history of nicotine dependence; Z90.710 Acquired absence of both cervix and uterus; Z68.39 Body mass index [BMI] 39.0-39.9, adult; Z88.0 Allergy status to penicillin
CPT/HCPCS: 36415; 36569; 71045; 71275; 72100; 76000; 76937; 80048; 83605; 83735; 84100; 84145; 84484; 85014; 85018; 85379; 86850; 86900; 86920; 88304; 88311; 92610; 93005; 93306; 93970; 94640; 95863; 95925; 95926; 95928; 95929; 97110; 97162; 97166; 97530; 97535; C1713; C1725; C9113; J0330; J0360; J1160; J1170; J1956; J2250; J2270; J2704; J2710; J3010; J3370; J3475; J3490; J7040; J7050; J7060; J7121; J7608; J7620; J7626; Q9967

== ENCOUNTER 2018-11-25 17:45 | Inpatient (IN) | payer MEDICARE, MEDICAID ==
[~2018-11-25] VITALS: Ht 165.1 cm; Wt 107.5 kg
[~2018-11-25 17:45] MED LIST changes: -OXYC-104 PO
[2018-11-25 20:00] VITALS: BP_SYST 118; BP_SYST 135; BP_DIAS 66; BP_DIAS 69
[2018-11-25] MEDS ORDERED: NA PHOS,M-B/NA PHOS,DI-BA ENEMA 118ML PR PRN (20:15)
[2018-11-25] MEDS ORDERED: BISACODYL 5MG TABLET PO PRN (20:15)
[2018-11-25] MEDS ORDERED: IPRATROPIUM/ALBUTEROL 0.5-3(2.5)MG/3ML NEB HHN PRN (20:15)
[2018-11-25] MEDS ORDERED: ACETAMINOPHEN 650MG/20.3ML UDC PO PRN (20:15)
[2018-11-25] MEDS: GUAIFENESIN 600MG ER TABLET PO SCH (22:11)
[2018-11-25] MEDS: MORPHINE SULFATE 4 MG/ML CPJ (NOT FOR IM USE) IV PRN (22:11)
[2018-11-25] MEDS: FAMOTIDINE 20MG TABLET PO SCH (22:11)
[2018-11-26] MEDS ORDERED: BISACODYL 10MG SUPP PR PRN (00:15)
[2018-11-26] MEDS: HYDROCODONE/APAP 7.5/325MG 1 TAB TABLET PO PRN ×4 (00:40→23:46)
[2018-11-26] MEDS ORDERED: OXYC-104 PO (02:55)
[2018-11-26] MEDS: MORPHINE SULFATE 4 MG/ML CPJ (NOT FOR IM USE) IV PRN ×3 (05:19→17:05)
[2018-11-26 06:38] LABS: HEMATOCRIT. 28.3 % (36.0-48.0); HEMOGLOBIN. 9.4 g/dL (12.0-16.0); MEAN CORPUSCULAR VOLUME 96.5 fL (81.0-99.0); MEAN PLATELET VOLUME 8.1 fl (7.4-10.4); PLATELET 200 x1000/uL (130-400); RED BLOOD CELL COUNT 2.93 mill/uL (4.2-5.4)
[2018-11-26 07:21] LABS: CHLORIDE 106 mEq/L (98-107)
[2018-11-26 08:18] VITALS: BP 136/71
[2018-11-26] MEDS ORDERED: POLYETHYLENE GLYCOL 3350 (17GM) 1 DOSE PACK PO SCH (09:00)
[2018-11-26] MEDS ORDERED: ENOXAPARIN 30MG/0.3ML SYR SUBCUT SCH (09:00)
[2018-11-26] MEDS ORDERED: DOCUSATE SODIUM 100MG CAPSULE PO SCH (09:00)
[2018-11-26] MEDS: GUAIFENESIN 600MG ER TABLET PO SCH ×2 (09:37→21:21)
[2018-11-26] MEDS: FAMOTIDINE 20MG TABLET PO SCH ×2 (09:37→21:21)
[2018-11-26] MEDS: AMIODARONE HCL 200 MG TABLET PO SCH (09:38)
[2018-11-26] MEDS: IPRATROPIUM/ALBUTEROL 0.5-3(2.5)MG/3ML NEB HHN SCH ×3 (09:50→20:56)
[2018-11-26] MEDS: LEVOFLOXACIN 500MG TABLET PO SCH (10:42)
[2018-11-26] MEDS: LIDOCAINE 5% PATCH TOP SCH (13:28)
[2018-11-26 15:50] LABS: PLATELET ESTIMATE NORMAL
[2018-11-26] MEDS: DOCUSATE SODIUM 100MG CAPSULE PO SCH (16:48)
[2018-11-26] MEDS: LACTULOSE 20G/30ML UDC PO SCH ×2 (16:48→17:02)
[2018-11-26] MEDS: DIGOXIN 250MCG TABLET PO SCH (16:48)
[2018-11-26 20:00] VITALS: BP 135/81
[2018-11-26] MEDS: POLYETHYLENE GLYCOL 3350 (17GM) 1 DOSE PACK PO SCH (21:00)
[2018-11-27 01:00] LABS: CLARITY URINE CLOUDY (CLEAR); COLOR URINE YELLOW (YELLOW); KETONES URINE NEGATIVE (NEGATIVE); LEUKOCYTE ESTERASE URINE NEGATIVE (NEGATIVE); NITRITE URINE NEGATIVE (NEGATIVE); OCCULT BLOOD URINE NEGATIVE (NEGATIVE); PH URINE 6.5 (4.5-8.0); PROTEIN URINE NEGATIVE (NEGATIVE); SPECIFIC GRAVITY URINE 1.019 (1.005-1.030)
[2018-11-27] MEDS: MORPHINE SULFATE 4 MG/ML CPJ (NOT FOR IM USE) IV PRN ×2 (01:46→06:35)
[2018-11-27] MEDS: HYDROCODONE/APAP 7.5/325MG 1 TAB TABLET PO PRN ×3 (05:31→16:27)
[2018-11-27] MEDS: IPRATROPIUM/ALBUTEROL 0.5-3(2.5)MG/3ML NEB HHN SCH ×2 (07:48→14:05)
[2018-11-27 08:55] VITALS: BP 112/59
[2018-11-27] MEDS: DOCUSATE SODIUM 100MG CAPSULE PO SCH ×2 (09:00→17:53)
[2018-11-27] MEDS: FAMOTIDINE 20MG TABLET PO SCH ×2 (09:45→21:20)
[2018-11-27] MEDS: AMIODARONE HCL 200 MG TABLET PO SCH (09:45)
[2018-11-27] MEDS: GUAIFENESIN 600MG ER TABLET PO SCH ×2 (09:45→21:20)
[2018-11-27] MEDS: LIDOCAINE 5% PATCH TOP SCH (09:47)
[2018-11-27] MEDS: LEVOFLOXACIN 500MG TABLET PO SCH (11:53)
[2018-11-27] MEDS: GABAPENTIN 100MG CAPSULE PO SCH ×2 (14:00→21:21)
[2018-11-27] MEDS: DIGOXIN 250MCG TABLET PO SCH (18:00)
[2018-11-27 20:00] VITALS: BP 113/56
[2018-11-27] MEDS: POLYETHYLENE GLYCOL 3350 (17GM) 1 DOSE PACK PO SCH (21:00)
[2018-11-27] MEDS: ENOXAPARIN 30MG/0.3ML SYR SUBCUT SCH (21:21)
[2018-11-28] MEDS: MORPHINE SULFATE 4 MG/ML CPJ (NOT FOR IM USE) IV PRN ×4 (00:47→21:21)
[2018-11-28] MEDS: GABAPENTIN 100MG CAPSULE PO SCH ×3 (05:16→21:07)
[2018-11-28] MEDS: HYDROCODONE/APAP 7.5/325MG 1 TAB TABLET PO PRN ×2 (06:46→12:20)
[2018-11-28 06:51] LABS: EOSINOPHILS % 3.4 % (0.0-5.0); HEMOGLOBIN. 8.8 g/dL (12.0-16.0); LYMPHOCYTES % 36.7 % (20.0-50.0); MEAN CORPUSCULAR HEMOGLOBIN 32.2 pg (28.0-32.0); MEAN CORPUSCULAR VOLUME 95.5 fL (81.0-99.0); MEAN PLATELET VOLUME 7.7 fl (7.4-10.4); NEUTROPHILS % 45.9 % (40.0-76.0); PLATELET 261 x1000/uL (130-400); RED BLOOD CELL COUNT 2.73 mill/uL (4.2-5.4); RED CELL DISTRIBUTION WIDTH 14.1 % (11.6-14.6)
[2018-11-28 06:55] LABS: CHLORIDE 106 mEq/L (98-107)
[2018-11-28 07:04] LABS: PHOSPHORUS 3.2 mg/dL (2.5-4.9)
[2018-11-28 07:08] LABS: TOTAL IRON BINDING CAPACITY 292 ug/dL (250-450)
[2018-11-28 07:37] LABS: FOLIC ACID (FOLATE) SERUM 13.5 ng/mL (>5.38)
[2018-11-28 08:00] VITALS: BP 110/66
[2018-11-28] MEDS: FAMOTIDINE 20MG TABLET PO SCH ×2 (08:39→21:07)
[2018-11-28] MEDS: AMIODARONE HCL 200 MG TABLET PO SCH (08:39)
[2018-11-28] MEDS: DOCUSATE SODIUM 100MG CAPSULE PO SCH ×2 (08:39→17:20)
[2018-11-28] MEDS: ENOXAPARIN 30MG/0.3ML SYR SUBCUT SCH ×2 (08:39→21:07)
[2018-11-28] MEDS: LIDOCAINE 5% PATCH TOP SCH (08:40)
[2018-11-28] MEDS: LEVOFLOXACIN 500MG TABLET PO SCH (12:19)
[2018-11-28] MEDS: DIGOXIN 250MCG TABLET PO SCH (18:56)
[2018-11-28 20:00] VITALS: BP 107/60
[2018-11-28] MEDS: POLYETHYLENE GLYCOL 3350 (17GM) 1 DOSE PACK PO SCH (21:00)
[2018-11-28] MEDS ORDERED: IRON SUCROSE COMPLEX 100 MG in SODIUM CHLORIDE 0.9% 100 ML IV SCH (21:30)
[2018-11-29] MEDS: HYDROCODONE/APAP 7.5/325MG 1 TAB TABLET PO PRN ×3 (01:13→11:52)
[2018-11-29] MEDS: GABAPENTIN 100MG CAPSULE PO SCH ×3 (05:15→21:35)
[2018-11-29 07:17] LABS: BASOPHILS % 0.9 % (0.0-2.0); EOSINOPHILS % 3.5 % (0.0-5.0); HEMATOCRIT. 28.7 % (36.0-48.0); HEMOGLOBIN. 9.4 g/dL (12.0-16.0); LYMPHOCYTES % 37.6 % (20.0-50.0); MEAN CORPUSCULAR HEMOGLOBIN 31.3 pg (28.0-32.0); MEAN CORPUSCULAR VOLUME 95.2 fL (81.0-99.0); MEAN PLATELET VOLUME 7.7 fl (7.4-10.4); MONOCYTES % 13.1 % (2.0-8.0); NEUTROPHILS % 44.9 % (40.0-76.0); PLATELET 305 x1000/uL (130-400); RED BLOOD CELL COUNT 3.01 mill/uL (4.2-5.4); RED CELL DISTRIBUTION WIDTH 14.1 % (11.6-14.6)
[2018-11-29 08:08] LABS: T4 FREE 1.53 ng/dL (0.76-1.46)
[2018-11-29 08:20] LABS: DIGOXIN 0.9 ng/mL (0.9-2.0)
[2018-11-29] MEDS: AMIODARONE HCL 200 MG TABLET PO SCH (08:31)
[2018-11-29] MEDS: DOCUSATE SODIUM 100MG CAPSULE PO SCH ×2 (08:31→17:00)
[2018-11-29] MEDS: FAMOTIDINE 20MG TABLET PO SCH ×2 (08:33→21:35)
[2018-11-29] MEDS: MORPHINE SULFATE 4 MG/ML CPJ (NOT FOR IM USE) IV PRN ×2 (08:33→21:34)
[2018-11-29] MEDS: LIDOCAINE 5% PATCH TOP SCH (08:34)
[2018-11-29] MEDS: ENOXAPARIN 30MG/0.3ML SYR SUBCUT SCH ×2 (08:36→21:37)
[2018-11-29] MEDS: LEVOFLOXACIN 500MG TABLET PO SCH (11:47)
[2018-11-29] MEDS: OXYBUTYNIN CHLORIDE 5MG TABLET PO SCH ×2 (13:02→21:35)
[2018-11-29 17:42] VITALS: BP 122/65
[2018-11-29] MEDS: DIGOXIN 250MCG TABLET PO SCH (17:45)
[2018-11-29 20:00] VITALS: BP 111/61
[2018-11-29] MEDS: POLYETHYLENE GLYCOL 3350 (17GM) 1 DOSE PACK PO SCH (21:00)
[2018-11-29] MEDS: IRON SUCROSE COMPLEX 100 MG in SODIUM CHLORIDE 0.9% 100 ML IV SCH (21:36)
[2018-11-30] MEDS: HYDROCODONE/APAP 7.5/325MG 1 TAB TABLET PO PRN ×2 (05:58→21:53)
[2018-11-30] MEDS: GABAPENTIN 100MG CAPSULE PO SCH ×3 (06:00→21:01)
[2018-11-30 08:00] VITALS: BP 121/77
[2018-11-30] MEDS: DOCUSATE SODIUM 100MG CAPSULE PO SCH ×2 (09:20→17:00)
[2018-11-30] MEDS: AMIODARONE HCL 200 MG TABLET PO SCH (09:20)
[2018-11-30] MEDS: OXYBUTYNIN CHLORIDE 5MG TABLET PO SCH ×2 (09:20→21:01)
[2018-11-30] MEDS: FAMOTIDINE 20MG TABLET PO SCH ×2 (09:20→21:01)
[2018-11-30] MEDS: ENOXAPARIN 30MG/0.3ML SYR SUBCUT SCH ×2 (09:21→21:01)
[2018-11-30] MEDS: LIDOCAINE 5% PATCH TOP SCH (09:22)
[2018-11-30] MEDS: MORPHINE SULFATE 4 MG/ML CPJ (NOT FOR IM USE) IV PRN (09:23)
[2018-11-30] MEDS: LEVOFLOXACIN 500MG TABLET PO SCH (12:42)
[2018-11-30] MEDS: DIGOXIN 250MCG TABLET PO SCH (17:39)
[2018-11-30 20:00] VITALS: BP 116/64
[2018-11-30] MEDS: POLYETHYLENE GLYCOL 3350 (17GM) 1 DOSE PACK PO SCH (21:00)
[2018-11-30] MEDS: IRON SUCROSE COMPLEX 100 MG in SODIUM CHLORIDE 0.9% 100 ML IV SCH (21:01)
[2018-12-01] MEDS: MORPHINE SULFATE 4 MG/ML CPJ (NOT FOR IM USE) IV PRN (05:09)
[2018-12-01] MEDS: GABAPENTIN 100MG CAPSULE PO SCH ×3 (05:10→21:34)
[2018-12-01 08:00] VITALS: BP 134/71
[2018-12-01] MEDS: DOCUSATE SODIUM 100MG CAPSULE PO SCH (09:00)
[2018-12-01] MEDS: AMIODARONE HCL 200 MG TABLET PO SCH (10:19)
[2018-12-01] MEDS: FAMOTIDINE 20MG TABLET PO SCH ×2 (10:20→20:56)
[2018-12-01] MEDS: ENOXAPARIN 30MG/0.3ML SYR SUBCUT SCH ×2 (10:20→20:56)
[2018-12-01] MEDS: LEVOFLOXACIN 500MG TABLET PO SCH (10:20)
[2018-12-01] MEDS: OXYBUTYNIN CHLORIDE 5MG TABLET PO SCH ×2 (10:20→20:56)
[2018-12-01] MEDS: LIDOCAINE 5% PATCH TOP SCH (10:22)
[2018-12-01] MEDS: HYDROCODONE/APAP 7.5/325MG 1 TAB TABLET PO PRN ×2 (16:54→21:57)
[2018-12-01] MEDS: DIGOXIN 250MCG TABLET PO SCH (17:59)
[2018-12-01 20:00] VITALS: BP 155/70
[2018-12-01] MEDS: IRON SUCROSE COMPLEX 100 MG in SODIUM CHLORIDE 0.9% 100 ML IV SCH (20:56)
[2018-12-02] MEDS: MORPHINE SULFATE 4 MG/ML CPJ (NOT FOR IM USE) IV PRN ×3 (03:45→14:30)
[2018-12-02] MEDS: GABAPENTIN 100MG CAPSULE PO SCH ×3 (05:11→21:32)
[2018-12-02 06:52] LABS: EOSINOPHILS % 4.7 % (0.0-5.0); HEMATOCRIT. 27.2 % (36.0-48.0); HEMOGLOBIN. 9.2 g/dL (12.0-16.0); MEAN CORPUSCULAR HEMOGLOBIN 32.3 pg (28.0-32.0); MEAN CORPUSCULAR VOLUME 95.9 fL (81.0-99.0); MEAN PLATELET VOLUME 7.2 fl (7.4-10.4); NEUTROPHILS % 44.3 % (40.0-76.0); PLATELET 375 x1000/uL (130-400); RED BLOOD CELL COUNT 2.84 mill/uL (4.2-5.4); RED CELL DISTRIBUTION WIDTH 14.3 % (11.6-14.6)
[2018-12-02 07:23] LABS: CHLORIDE 109 mEq/L (98-107)
[2018-12-02 08:00] VITALS: BP 118/72
[2018-12-02] MEDS: OXYBUTYNIN CHLORIDE 5MG TABLET PO SCH ×2 (08:36→21:24)
[2018-12-02] MEDS: HYDROCODONE/APAP 7.5/325MG 1 TAB TABLET PO PRN ×3 (08:37→23:10)
[2018-12-02] MEDS: FAMOTIDINE 20MG TABLET PO SCH (08:40)
[2018-12-02] MEDS: AMIODARONE HCL 200 MG TABLET PO SCH (08:48)
[2018-12-02] MEDS: LIDOCAINE 5% PATCH TOP SCH (09:41)
[2018-12-02] MEDS: ENOXAPARIN 30MG/0.3ML SYR SUBCUT SCH ×2 (09:42→21:24)
[2018-12-02] MEDS: LEVOFLOXACIN 500MG TABLET PO SCH (11:08)
[2018-12-02] MEDS: DIGOXIN 250MCG TABLET PO SCH (17:03)
[2018-12-02 20:00] VITALS: BP 104/63
[2018-12-02] MEDS: IRON SUCROSE COMPLEX 100 MG in SODIUM CHLORIDE 0.9% 100 ML IV SCH (21:24)
[2018-12-03] MEDS: GABAPENTIN 100MG CAPSULE PO SCH ×3 (06:00→21:47)
[2018-12-03 07:57] VITALS: BP 100/46
[2018-12-03] MEDS: LIDOCAINE 5% PATCH TOP SCH (08:54)
[2018-12-03] MEDS: OXYBUTYNIN CHLORIDE 5MG TABLET PO SCH ×2 (08:54→21:43)
[2018-12-03] MEDS: AMIODARONE HCL 200 MG TABLET PO SCH (08:54)
[2018-12-03] MEDS: ENOXAPARIN 30MG/0.3ML SYR SUBCUT SCH ×2 (08:55→21:43)
[2018-12-03] MEDS: HYDROCODONE/APAP 7.5/325MG 1 TAB TABLET PO PRN ×2 (09:07→17:14)
[2018-12-03] MEDS: LEVOFLOXACIN 500MG TABLET PO SCH (11:18)
[2018-12-03] MEDS: MORPHINE SULFATE 4 MG/ML CPJ (NOT FOR IM USE) IV PRN (12:36)
[2018-12-03] MEDS: DIGOXIN 250MCG TABLET PO SCH (17:12)
[2018-12-03 20:00] VITALS: BP 121/70
[2018-12-04] MEDS: GABAPENTIN 100MG CAPSULE PO SCH ×3 (06:00→21:09)
[2018-12-04 06:57] LABS: CHLORIDE 108 mEq/L (98-107)
[2018-12-04 07:05] LABS: BASOPHILS % 1.1 % (0.0-2.0); EOSINOPHILS % 4.5 % (0.0-5.0); HEMATOCRIT. 28.9 % (36.0-48.0); HEMOGLOBIN. 9.4 g/dL (12.0-16.0); LYMPHOCYTES % 42.5 % (20.0-50.0); MEAN CORPUSCULAR HEMOGLOBIN 31.6 pg (28.0-32.0); MEAN CORPUSCULAR VOLUME 96.8 fL (81.0-99.0); MEAN PLATELET VOLUME 7.4 fl (7.4-10.4); MONOCYTES % 11.1 % (2.0-8.0); NEUTROPHILS % 40.8 % (40.0-76.0); PLATELET 401 x1000/uL (130-400); RED BLOOD CELL COUNT 2.99 mill/uL (4.2-5.4); RED CELL DISTRIBUTION WIDTH 14.8 % (11.6-14.6)
[2018-12-04 07:22] LABS: T4 FREE 1.48 ng/dL (0.76-1.46)
[2018-12-04] MEDS: MORPHINE SULFATE 4 MG/ML CPJ (NOT FOR IM USE) IV PRN (07:23)
[2018-12-04 08:55] VITALS: BP 127/66
[2018-12-04] MEDS: ENOXAPARIN 30MG/0.3ML SYR SUBCUT SCH ×2 (09:52→21:09)
[2018-12-04] MEDS: OXYBUTYNIN CHLORIDE 5MG TABLET PO SCH ×2 (09:52→21:00)
[2018-12-04] MEDS: AMIODARONE HCL 200 MG TABLET PO SCH (09:52)
[2018-12-04] MEDS: LIDOCAINE 5% PATCH TOP SCH (09:53)
[2018-12-04] MEDS: HYDROCODONE/APAP 7.5/325MG 1 TAB TABLET PO PRN (10:28)
[2018-12-04] MEDS ORDERED: HYDROCODONE/APAP 7.5/325MG 1 TAB TABLET PO PRN (15:00)
[2018-12-04] MEDS: DIGOXIN 250MCG TABLET PO SCH (17:27)
[2018-12-04 20:00] VITALS: BP 134/68
[2018-12-05] MEDS: MORPHINE SULFATE 4 MG/ML CPJ (NOT FOR IM USE) IV PRN ×2 (04:28→20:08)
[2018-12-05] MEDS: GABAPENTIN 100MG CAPSULE PO SCH ×3 (05:42→22:00)
[2018-12-05] MEDS: OXYBUTYNIN CHLORIDE 5MG TABLET PO SCH ×2 (08:22→20:07)
[2018-12-05] MEDS: AMIODARONE HCL 200 MG TABLET PO SCH (08:22)
[2018-12-05] MEDS: LIDOCAINE 5% PATCH TOP SCH (08:23)
[2018-12-05] MEDS: ENOXAPARIN 30MG/0.3ML SYR SUBCUT SCH ×2 (08:24→20:07)
[2018-12-05 08:50] VITALS: BP 106/54
[2018-12-05] MEDS: HYDROCODONE/APAP 7.5/325MG 1 TAB TABLET PO PRN ×2 (10:15→15:45)
[2018-12-05] MEDS: DIGOXIN 125MCG TABLET PO SCH (17:05)
[2018-12-05 19:11] LABS: 25-HYDROXY VITAMIN D3 9.9 ng/mL (.)
[2018-12-05 20:00] VITALS: BP 148/83
[2018-12-06] MEDS: GABAPENTIN 100MG CAPSULE PO SCH ×4 (05:25→21:23)
[2018-12-06] MEDS: HYDROCODONE/APAP 7.5/325MG 1 TAB TABLET PO PRN ×3 (06:34→20:15)
[2018-12-06 07:12] LABS: BASOPHILS % 1.3 % (0.0-2.0); EOSINOPHILS % 4.8 % (0.0-5.0); HEMATOCRIT. 28.6 % (36.0-48.0); HEMOGLOBIN. 9.6 g/dL (12.0-16.0); LYMPHOCYTES % 47.5 % (20.0-50.0); MEAN CORPUSCULAR HEMOGLOBIN 32.4 pg (28.0-32.0); MEAN CORPUSCULAR VOLUME 96.9 fL (81.0-99.0); MEAN PLATELET VOLUME 7.3 fl (7.4-10.4); NEUTROPHILS % 33.4 % (40.0-76.0); PLATELET 388 x1000/uL (130-400); RED BLOOD CELL COUNT 2.95 mill/uL (4.2-5.4); RED CELL DISTRIBUTION WIDTH 15.9 % (11.6-14.6)
[2018-12-06 07:28] LABS: CHLORIDE 109 mEq/L (98-107)
[2018-12-06 08:08] VITALS: BP 126/73
[2018-12-06] MEDS: OXYBUTYNIN CHLORIDE 5MG TABLET PO SCH ×2 (08:57→20:15)
[2018-12-06] MEDS: AMIODARONE HCL 200 MG TABLET PO SCH (08:58)
[2018-12-06] MEDS: ENOXAPARIN 30MG/0.3ML SYR SUBCUT SCH ×2 (09:00→20:15)
[2018-12-06] MEDS: LIDOCAINE 5% PATCH TOP SCH (09:01)
[2018-12-06] MEDS: DIGOXIN 125MCG TABLET PO SCH (17:04)
[2018-12-06] MEDS: MORPHINE SULFATE 4 MG/ML CPJ (NOT FOR IM USE) IV PRN (17:04)
[2018-12-06] MEDS ORDERED: ERGOCALCIFEROL 50000UNITS CAPSULE PO SCH (18:00)
[2018-12-06 20:00] VITALS: BP 133/72
[2018-12-07] MEDS: MORPHINE SULFATE 4 MG/ML CPJ (NOT FOR IM USE) IV PRN ×2 (04:26→23:18)
[2018-12-07] MEDS: GABAPENTIN 100MG CAPSULE PO SCH ×3 (05:23→22:00)
[2018-12-07 08:14] VITALS: BP 118/65
[2018-12-07] MEDS: OXYBUTYNIN CHLORIDE 5MG TABLET PO SCH ×2 (09:13→22:01)
[2018-12-07] MEDS: AMIODARONE HCL 200 MG TABLET PO SCH (09:14)
[2018-12-07] MEDS: ENOXAPARIN 30MG/0.3ML SYR SUBCUT SCH ×2 (09:15→22:01)
[2018-12-07] MEDS: LIDOCAINE 5% PATCH TOP SCH (09:17)
[2018-12-07] MEDS: HYDROCODONE/APAP 7.5/325MG 1 TAB TABLET PO PRN (09:44)
[2018-12-07] MEDS: DIGOXIN 125MCG TABLET PO SCH (17:51)
[2018-12-07 20:00] VITALS: BP 112/64
[2018-12-08] MEDS: GABAPENTIN 100MG CAPSULE PO SCH ×4 (05:39→21:29)
[2018-12-08 08:27] VITALS: BP 111/52
[2018-12-08] MEDS: OXYBUTYNIN CHLORIDE 5MG TABLET PO SCH ×2 (09:23→21:24)
[2018-12-08] MEDS: ENOXAPARIN 30MG/0.3ML SYR SUBCUT SCH ×2 (09:24→21:24)
[2018-12-08] MEDS: AMIODARONE HCL 200 MG TABLET PO SCH (09:24)
[2018-12-08] MEDS: LIDOCAINE 5% PATCH TOP SCH (09:25)
[2018-12-08] MEDS: MORPHINE SULFATE 4 MG/ML CPJ (NOT FOR IM USE) IV PRN ×2 (09:45→17:33)
[2018-12-08] MEDS: DIGOXIN 125MCG TABLET PO SCH (17:40)
[2018-12-08 20:00] VITALS: BP 138/71
[2018-12-09] MEDS: HYDROCODONE/APAP 7.5/325MG 1 TAB TABLET PO PRN ×2 (04:34→20:51)
[2018-12-09] MEDS: GABAPENTIN 100MG CAPSULE PO SCH ×3 (05:51→20:51)
[2018-12-09 06:53] LABS: BASOPHILS % 1.2 % (0.0-2.0); EOSINOPHILS % 5.6 % (0.0-5.0); HEMATOCRIT. 29.7 % (36.0-48.0); HEMOGLOBIN. 9.8 g/dL (12.0-16.0); LYMPHOCYTES % 54.6 % (20.0-50.0); MEAN CORPUSCULAR HEMOGLOBIN 31.8 pg (28.0-32.0); MEAN CORPUSCULAR VOLUME 96.7 fL (81.0-99.0); MEAN PLATELET VOLUME 7.2 fl (7.4-10.4); MONOCYTES % 11.8 % (2.0-8.0); NEUTROPHILS % 26.8 % (40.0-76.0); PLATELET 311 x1000/uL (130-400); RED BLOOD CELL COUNT 3.07 mill/uL (4.2-5.4); RED CELL DISTRIBUTION WIDTH 15.8 % (11.6-14.6)
[2018-12-09 07:40] LABS: CHLORIDE 109 mEq/L (98-107)
[2018-12-09 07:48] LABS: PHOSPHORUS 3.6 mg/dL (2.5-4.9)
[2018-12-09 08:00] VITALS: BP 131/60
[2018-12-09] MEDS: OXYBUTYNIN CHLORIDE 5MG TABLET PO SCH ×2 (09:04→20:47)
[2018-12-09] MEDS: AMIODARONE HCL 200 MG TABLET PO SCH (09:04)
[2018-12-09] MEDS: ENOXAPARIN 30MG/0.3ML SYR SUBCUT SCH ×2 (09:04→20:47)
[2018-12-09] MEDS: LIDOCAINE 5% PATCH TOP SCH (09:05)
[2018-12-09] MEDS: MORPHINE SULFATE 4 MG/ML CPJ (NOT FOR IM USE) IV PRN ×2 (09:14→14:16)
[2018-12-09] MEDS: DIGOXIN 125MCG TABLET PO SCH (17:04)
[2018-12-09 20:00] VITALS: BP 145/75
[2018-12-10] MEDS: GABAPENTIN 100MG CAPSULE PO SCH ×3 (05:33→21:09)
[2018-12-10 06:03] LABS: EOSINOPHILS % 5.6 % (0.0-5.0); HEMATOCRIT. 30.2 % (36.0-48.0); HEMOGLOBIN. 9.8 g/dL (12.0-16.0); LYMPHOCYTES % 53.2 % (20.0-50.0); MEAN CORPUSCULAR HEMOGLOBIN 31.5 pg (28.0-32.0); MEAN CORPUSCULAR VOLUME 97.3 fL (81.0-99.0); MONOCYTES % 12.4 % (2.0-8.0); NEUTROPHILS % 27.8 % (40.0-76.0); RED BLOOD CELL COUNT 3.11 mill/uL (4.2-5.4); RED CELL DISTRIBUTION WIDTH 15.7 % (11.6-14.6)
[2018-12-10 08:00] VITALS: BP 158/76
[2018-12-10] MEDS: ENOXAPARIN 30MG/0.3ML SYR SUBCUT SCH ×2 (08:15→21:08)
[2018-12-10] MEDS: OXYBUTYNIN CHLORIDE 5MG TABLET PO SCH ×2 (08:15→21:08)
[2018-12-10] MEDS: AMIODARONE HCL 200 MG TABLET PO SCH (08:15)
[2018-12-10] MEDS: LIDOCAINE 5% PATCH TOP SCH (08:16)
[2018-12-10] MEDS: MORPHINE SULFATE 4 MG/ML CPJ (NOT FOR IM USE) IV PRN ×3 (08:17→20:06)
[2018-12-10 09:26] LABS: PLATELET 249 x1000/uL (130-400)
[2018-12-10] MEDS: HYDROCODONE/APAP 7.5/325MG 1 TAB TABLET PO PRN (11:57)
[2018-12-10 20:00] VITALS: BP 129/71
[2018-12-10] MEDS: DILTIAZEM HCL 30MG TABLET PO SCH (21:09)
[2018-12-11 06:00] VITALS: BP 143/71
[2018-12-11] MEDS: GABAPENTIN 100MG CAPSULE PO SCH ×3 (06:00→21:13)
[2018-12-11] MEDS: DILTIAZEM HCL 30MG TABLET PO SCH (06:00)
[2018-12-11] MEDS: HYDROCODONE/APAP 7.5/325MG 1 TAB TABLET PO PRN ×2 (08:26→21:27)
[2018-12-11] MEDS: LIDOCAINE 5% PATCH TOP SCH (08:26)
[2018-12-11] MEDS: OXYBUTYNIN CHLORIDE 5MG TABLET PO SCH ×2 (08:27→21:13)
[2018-12-11] MEDS: ENOXAPARIN 30MG/0.3ML SYR SUBCUT SCH ×2 (08:32→21:00)
[2018-12-11 08:47] VITALS: BP 112/51
[2018-12-11] MEDS: DILTIAZEM HCL 120MG CAPSULE CD 24HR PO SCH (10:30)
[2018-12-11] MEDS: MORPHINE SULFATE 4 MG/ML CPJ (NOT FOR IM USE) IV PRN ×2 (11:12→18:29)
[2018-12-11 20:00] VITALS: BP 97/51
[2018-12-12] MEDS: GABAPENTIN 100MG CAPSULE PO SCH (06:20)
[2018-12-12] MEDS: HYDROCODONE/APAP 7.5/325MG 1 TAB TABLET PO PRN (07:23)
[2018-12-12 08:32] VITALS: BP 122/67
[2018-12-12] MEDS: ENOXAPARIN 30MG/0.3ML SYR SUBCUT SCH (09:00)
[2018-12-12] MEDS: DILTIAZEM HCL 120MG CAPSULE CD 24HR PO SCH (09:00)
[2018-12-12] MEDS: OXYBUTYNIN CHLORIDE 5MG TABLET PO SCH (09:33)
[2018-12-12] MEDS: LIDOCAINE 5% PATCH TOP SCH (09:34)
[2018-12-12 11:43] VITALS: BP 122/79
== END 2018-12-12 15:59 | disposition home health service (06) | DRG 551 ==
PROVIDERS: ADMIT Physical Medicine & Rehabilitation Spinal Cord Injury Medicine; ATTEND Internal Medicine Nephrology
DX: M48.061 Spinal stenosis, lumbar region without neurogenic claudication (principal); J18.9 Pneumonia, unspecified organism; G82.50 Quadriplegia, unspecified; E43 Unspecified severe protein-calorie malnutrition; K59.2 Neurogenic bowel, not elsewhere classified; I47.1 Supraventricular tachycardia; J44.0 Chronic obstructive pulmonary disease with (acute) lower respiratory infection; G95.89 Other specified diseases of spinal cord; J98.11 Atelectasis; R53.81 Other malaise; I10 Essential (primary) hypertension; G89.4 Chronic pain syndrome; E66.01 Morbid (severe) obesity due to excess calories; M17.0 Bilateral primary osteoarthritis of knee; F32.9 Major depressive disorder, single episode, unspecified; F41.9 Anxiety disorder, unspecified; M47.816 Spondylosis without myelopathy or radiculopathy, lumbar region; D63.8 Anemia in other chronic diseases classified elsewhere; E55.9 Vitamin D deficiency, unspecified; D72.819 Decreased white blood cell count, unspecified; I48.91 Unspecified atrial fibrillation; K80.20 Calculus of gallbladder without cholecystitis without obstruction; E07.9 Disorder of thyroid, unspecified; K59.00 Constipation, unspecified; I25.10 Atherosclerotic heart disease of native coronary artery without angina pectoris; K21.9 Gastro-esophageal reflux disease without esophagitis; K76.0 Fatty (change of) liver, not elsewhere classified; Z90.710 Acquired absence of both cervix and uterus; Z68.39 Body mass index [BMI] 39.0-39.9, adult; I25.2 Old myocardial infarction; Z87.891 Personal history of nicotine dependence; Z79.899 Other long term (current) drug therapy; Z82.49 Family history of ischemic heart disease and other diseases of the circulatory system; Z83.3 Family history of diabetes mellitus; Z98.1 Arthrodesis status; Z88.0 Allergy status to penicillin; Z80.0 Family history of malignant neoplasm of digestive organs
CPT/HCPCS: 36415; 71045; 71250; 80048; 80162; 82306; 82607; 82728; 82746; 83540; 83550; 83735; 84100; 84134; 84439; 84443; 84481; 86376; 93005; 93970; 94640; 97110; 97116; 97150; 97163; 97166; 97530; 97535; A6261; J1650; J2270; J7040; J7050; J7620

== ENCOUNTER → 2019-05-09 | Outpatient (CLI) | payer MEDICARE, MEDICAID ==
[~2019-05-09] MED LIST changes: -OXYC-579 PO
== END | disposition home or self-care (01) ==
LOC: RAD 13:35
PROVIDERS: ATTEND Neurological Surgery
DX: M47.816 Spondylosis without myelopathy or radiculopathy, lumbar region (principal)
CPT/HCPCS: 72114

== ENCOUNTER → 2019-09-12 | Outpatient (CLI) | payer MEDICARE, MEDICAID | END | disposition home or self-care (01) | LOC: RAD 07:28 | PROVIDERS: ATTEND Neurological Surgery | DX: M48.061 Spinal stenosis, lumbar region without neurogenic claudication (principal); M43.16 Spondylolisthesis, lumbar region; Z98.890 Other specified postprocedural states | CPT/HCPCS: 72148 ==

== ENCOUNTER → 2019-09-26 | Outpatient (CLI) | payer MEDICARE, MEDICAID | END | disposition home or self-care (01) | LOC: RAD 15:17 | PROVIDERS: ATTEND Neurological Surgery | DX: M47.816 Spondylosis without myelopathy or radiculopathy, lumbar region (principal); M43.16 Spondylolisthesis, lumbar region; M43.26 Fusion of spine, lumbar region | CPT/HCPCS: 72114 ==

== ENCOUNTER → 2019-10-15 | Outpatient (CLI) | payer MEDICARE, MEDICAID | END | disposition home or self-care (01) | LOC: MRI 08:45 | PROVIDERS: ATTEND Neurological Surgery | DX: S33.120A Subluxation of L2/L3 lumbar vertebra, initial encounter (principal); M47.815 Spondylosis without myelopathy or radiculopathy, thoracolumbar region; M48.07 Spinal stenosis, lumbosacral region; M50.322 Other cervical disc degeneration at C5-C6 level; M50.323 Other cervical disc degeneration at C6-C7 level; M48.02 Spinal stenosis, cervical region; X58.XXXA Exposure to other specified factors, initial encounter; Y93.89 Activity, other specified; Y92.89 Other specified places as the place of occurrence of the external cause; Y99.8 Other external cause status | CPT/HCPCS: 72131; 72141 ==

== ENCOUNTER 2020-07-25 14:13 | Emergency (ER) | payer MEDICARE, MEDICAID ==
[~2020-07-25] VITALS: Ht 165.1 cm; Wt 88.0 kg
[2020-07-25] MEDS ORDERED: HYDROCODONE/ACETAMINOPHEN 5/325MG TABLET PO ONE (14:45)
[2020-07-25 17:09] VITALS: BP 161/98
== END 2020-07-25 17:00 | disposition home or self-care (01) ==
LOC: ER 14:44
DX: M54.5 Low back pain (principal); G89.29 Other chronic pain; W18.39XA Other fall on same level, initial encounter; Y93.89 Activity, other specified; Y92.89 Other specified places as the place of occurrence of the external cause; Y99.8 Other external cause status; I10 Essential (primary) hypertension; Z90.710 Acquired absence of both cervix and uterus; Z98.890 Other specified postprocedural states; Z88.0 Allergy status to penicillin
CPT/HCPCS: 72131; 99284